=== PATIENT | male | born 1955 | race Caucasian/White ===

== ENCOUNTER 2017-11-28 07:56 | Day surgery (SDC) | payer OTHER ==
[~2017-11-28] VITALS: Ht 180.3 cm; Wt 137.9 kg
[~2017-11-28 07:56] MED LIST: DOXYCYCLINE HY100 MG PO; FLUOXETINE HCL20 MG PO
== END 2017-11-28 09:29 | disposition home or self-care (01) ==
LOC: DS 07:56 → OPS 07:56 → DS 08:45 → OPS 09:29
PROVIDERS: Ophthalmology
PROC: 08RJ3JZ Replacement of Right Lens with Synthetic Substitute, Percutaneous Approach (ICD-10-PCS; principal; 2017-11-28 08:45)
DX: H25.13 Age-related nuclear cataract, bilateral (principal); Z90.5 Acquired absence of kidney; Z79.2 Long term (current) use of antibiotics; Z79.899 Other long term (current) drug therapy

== ENCOUNTER 2017-12-12 07:57 | Day surgery (SDC) | payer OTHER ==
[~2017-12-12] VITALS: Ht 180.3 cm; Wt 137.9 kg
== END 2017-12-12 09:30 | disposition home or self-care (01) ==
LOC: OPS 07:57 → DS 07:57 → OPS 09:00
PROVIDERS: Ophthalmology
PROC: 08RK3JZ Replacement of Left Lens with Synthetic Substitute, Percutaneous Approach (ICD-10-PCS; principal; 2017-12-12 09:00)
DX: H25.12 Age-related nuclear cataract, left eye (principal); G47.30 Sleep apnea, unspecified; M54.9 Dorsalgia, unspecified; Z79.2 Long term (current) use of antibiotics; Z79.899 Other long term (current) drug therapy; Z99.89 Dependence on other enabling machines and devices; Z85.828 Personal history of other malignant neoplasm of skin; Z90.5 Acquired absence of kidney
CPT/HCPCS: J2250

== ENCOUNTER 2019-02-25 11:12 | Emergency (ER) | payer OTHER ==
[~2019-02-25] VITALS: Ht 180.3 cm; Wt 127.0 kg
--- OUTSIDE RECORDS SUMMARY | ~2019-02-25 | XMS | Encounter Summary ---
Demographics + + + | Address | [address] | | | [place] [address] | + + + | Home Phone | | + + + | Preferred Language | Unknown | + + + | Marital Status | | + + + | Mu-Ism Affiliation | MET | + + + | Race | Unknown | + + + | Ethnic Group | Not or | + + + Author + + + | Author | [facility] | + + + | Organization | [facility] | + + + | Address | Unknown | + + + | Phone | Unavailable | + + + Support + + + + + | Name | Relationship | Address | Phone | + + + + + | Vibha Terrell | RAHEEM | [address] | | | | | #[place] | | | | | [address] | | + + + + + Care Team Providers + +------+ + | Care Staple Cutter Name | Role | Phone | + +------+ + PCP | Unavailable | + +------+ + Encounter Details +--------+ + + + + | Date | Type | Department | Care Team | Description | +--------+ + + + + | 06/03/ | Transcribed | [facility] | Work, Social | Transcribed | | 2003 | | | | | +--------+ + + + + Social History + +-------+ +--------+------+ | Tobacco Use | Types | Packs/Day | Years | Date | | | | | Used | | + +-------+ +--------+------+ | Never Assessed | | | | | + +-------+ +--------+------+ + + + | Sex Assigned at | Date Recorded | | | | + + + | Not on file | | + + + + + + + | Job Start Date | Occupation | Industry | + + + + | Not on file | Not on file | Not on file | + + + + + + + + | Travel History | Travel Start | Travel End | + + + + + + | No recent travel history available. | + + documented as of this encounter Progress Notes Interface, Beef Cattle Farm Worker In - 04/30/2005 8:28 AM PDTClinic Date: 05/27/2004 Social Work Summary Background Information Patient Address: [address] [place] [address], [place] [id number] Patient Medical Account No.: n/a Evaluation Date: 05/27/2004 Evaluation Completed By: Susan Hercules L.C.S.W. Referral Request From: Purpose of Interview: This 48-year-old man was interviewed for a psychosocial assessment as part of his living unrelated kidney donor evaluation. The patient hopes to donate a kidney to his friend, Favian Ordaz. As the patient lives in [place] and is receiving his medical workup there, this interview was conducted by telephone. It lasted approximately 45 minutes. Marital/Family History: The patient was born and raised in [place], [place]. He just recently moved to [place] in March 2004, having previously lived in [place], [place]. The patient's mother at age 58 of cancer of the pancreas. His 75-year-old father Richard Loja lives in [place]. He has had quadruple bypass but is otherwise in good health. The patient's only sibling is his brother, Huy, age 45, who also lives in [place] and has no major health problems. The patient has been 25 years to Vibha Loja. Mrs. Loja is in good health. They do not have any children. 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 Education/Employment Information: The patient graduated from high school in 1971. He went on to university study right away but dropped out and moved to [place]. Eventually he went back to school at a community college and got his Associate of Science degree in [employer] and alternative [place]. 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 He states he had a love of history and social science. He ultimately moved to [place], [place] and got his Bachelor of Arts degree in the arts and history, and graduated with honors. He got his degree at age 39. He then went to the seminary at [employer] on scholarship and has his Mater's of Divinity and Art which he got in January 1999. His long-term plan is to complete his doctoral degree. He has no history of service. 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 He has discussed his plans for donation surgery with both his local episcopalian and the jo and he feels that he has solid backing from all involved. Financial Information: The patient states that his pay will continue at its current level while he has the surgery and recovers. He anticipates no financial hardship. He is anticipating staying with friends while in the [place] area so he does not anticipate any lodging expenses. The patient is aware that Mr. Ordaz's insurance covers his medical expenses that are directly related to his donation surgery but it does not cover wages or travel and lodging expense. The patient sees this as no barrier. Activities Information: The patient enjoys playing the guitar and going backpacking. He understands for several months while he is recovering from his surgery he would not be able to go backpacking. Medical/Legal/Psychiatric History: The patient states that he has not had any chronic health problems. He did cut his left hand with a saw requiring day surgery and he had general anesthesia when he had his wisdom teeth extracted. He has been diagnosed with sleep apnea and uses a CPAP machine at night which he reports has helped him immensely. The patient does feel that he gets "a little blue" during winter welch days and he does use a light box during the winter months which has been helpful. Otherwise, he denies any history of psychiatric disorder. He has sought counseling in the past and has found it to be very helpful. The patient is not currently smoking. He did smoke in the past but not for many years. He has never used recreational drugs. He describes his use of alcohol as moderate and he states that he does enjoy good wine or a beer, but his alcohol use was never identified as a problem. He has no history of legal infraction. Patient Understanding of the Donor Role: The patient states that he and Mr. Ordaz have worked together in their jobs with the episcopalian. The patient states that it has been difficult for him to see his friend physically "go downhill." Initially it had not occurred to the patient that he could be a kidney donor, however one day he came to this idea and he reported he realized that he had 2 kidneys and needed only 1. He discussed donation with his and she has been "totally supportive." The patient reports that his is very concerned for Mr. Ordaz also. The patient has no sense of coercion about making this donation and he comments "If it is God's plan, things will work out." During the course of the testing, the patient was told that he could not be a donor and he found this information to be very disappointing. He pursued further testing which did clear the way for him to go on to be a donor and he was very relieved and pleased that he could help his friend. The patient has not discussed his plan with his father and brother, although he expects that he will prior to the surgery. The patient states that he understands that Mr. Ordaz lost his kidney function due to diabetes. He knows that kidney transplantation does not provide a cure and that there is no guarantee if or for how long a transplanted organ will work. The patient did seem to have a general understanding of the nature of the donor surgery. He is making appropriate plans for his recovery and his work responsibilities. We discussed that kidney donation is a gift and as such it in no way obligates the kidney recipient to the kidney donor. The patient clearly understands this and he has a purely altruistic approach. Post-Hospitalization Care Plans: The patient has friends in the [place] area with whom he and his will be staying. The patient also commented that he has a yxrorr-ou-dop who is a nurse and her , who is a physician in general operator, who live in [place]. He was questioning whether it would be appropriate for them to plan to stay with that family in [place]. It appeared that he would feel most comfortable and happy with that plan. This interviewer urged him to discuss it with their transplant surgeon, Juana Sheridan. The patient's will accompany him and be available for his support. Advanced Directive: The purpose of the Advanced Directive was discussed and this interviewer sent him a copy of the [place] Advanced Directive form. Diagnostic Observations/Impressions: The patient readily made himself available for this telephone interview. He was open, friendly, and shared information easily and spontaneously. He is a man of ramos and kidney donation appears to be in concert with his values. He has been thoughtful in his approach to considering donation and he has the full support of his , his baptism, and the jo. Recommendations: From a psychosocial standpoint, the patient appears to be an excellent candidate for living, non-related kidney donation surgery. Susan Hercules L.C.S.W. / JADA [id number] / [id number] / [id number] / Tdocumented in this encounter Plan of Treatment Not on filedocumented as of this encounter Visit Diagnoses Not on filedocumented in this encounter
--- OUTSIDE RECORDS SUMMARY | ~2019-02-25 | XMS | Encounter Summary ---
Demographics + + + | Address | [address] | | | [place] [address] | + + + | Home Phone | | + + + | Preferred Language | Unknown | + + + | Marital Status | | + + + | Pentecostalism Affiliation | MET | + + + | Race | Unknown | + + + | Ethnic Group | Not or | + + + Author + + + | Organization | Unknown | + + + | Address | Unknown | + + + | Phone | Unavailable | + + + Support + + + + + | Name | Relationship | Address | Phone | + + + + + | Vibha MACIEL | [address] | | | | | #[place] | | | | | [address] | | + + + + + Care Team Providers + +------+ + | Care Director Of Cardiology Service Line Name | Role | Phone | + +------+ + PCP | Unavailable | + +------+ + Encounter Details +--------+ + + + + | Date | Type | Department | Care Team | Description | +--------+ + + + + | 08/05/ | Results | | Melinda Porter, | | | 2003 | Only | | [address] | | | | | | [address] | | | | | | [place] [address] | | | | | | [phone] | | +--------+ + + + + [...] + + documented as of this encounter Plan of Treatment Not on filedocumented as of this encounter Procedures + +--------+ + + + | Procedure Name | Priori | Date/Time | Associated Diagnosis | Comments | | | ty | | | | + +--------+ + + + | CBC ONLY | Routin | 08/05/2004 | | Results for this | | | e | 10:23 AM | | procedure are in the | | | | PST | | results section. | + +--------+ + + + documented in this encounter Results CBC ONLY WITH PLATELET (08/05/2004 10:23 AM PST) + + + + + + | Component | Value | Ref Range | Performed | Pathologist | | | | | At | Signature | + + + + + + | WHITE CELL | 8.6 | 4.4 - 11.0 K/cu | [facility] | | | COUNT | | mm | DEPARTMENT | | | | | | OF | | | | | | PATHOLOGY | | + + + + + + | RED CELL | 4.14 (L) | 4.20 - 5.90 | [facility] | | | COUNT | | M/cu mm | DEPARTMENT | | | | | | OF | | | | | | PATHOLOGY | | + + + + + + | HEMOGLOBIN | 12.8 (L) | 13.0 - 17.5 | [facility] | | | | | g/dL | DEPARTMENT | | | | | | OF | | | | | | PATHOLOGY | | + + + + + + | HEMATOCRIT | 36.7 (L) | 38.0 - 50.4 % | [facility] | | | | | | DEPARTMENT | | | | | | OF | | | | | | PATHOLOGY | | + + + + + + | MCV | 88.6 | 80.0 - 96.0 fL | [facility] | | | | | | DEPARTMENT | | | | | | OF | | | | | | PATHOLOGY | | + + + + + + | MCH | 30.9 | 28.5 - 32.3 pg | [facility] | | | | | | DEPARTMENT | | | | | | OF | | | | | | PATHOLOGY | | + + + + + + | MCHC | 34.9 | 33.4 - 35.5 | [facility] | | | | | g/dL | DEPARTMENT | | | | | | OF | | | | | | PATHOLOGY | | + + + + + + | RDW | 12.4 | 11.5 - 15.0 % | [facility] | | | | | | DEPARTMENT | | | | | | OF | | | | | | PATHOLOGY | | + + + + + + | PLATELET | 168 | 150 - 400 K/cu | [facility] | | | COUNT | | mm | DEPARTMENT | | | | | | OF | | | | | | PATHOLOGY | | + + + + + + | MPV | 7.9 | 7.4 - 10.4 fL | [facility] | | | | | | DEPARTMENT | | | | | | OF | | | | | | PATHOLOGY | | + + + + + + + + | Specimen | + + | | + + + + + + + | Performing | Address | City/State/Zipcode | Phone Number | | Organization | | | | + + + + + | [facility] DEPARTMENT OF | [address] | [place] [address] | | | PATHOLOGY | [address] | | | + + + + + | [facility] | [address] | [place] [address] | | | PATHOLOGY | [address] | | | + + + + + documented in this encounter Visit Diagnoses Not on filedocumented in this encounter"
--- OUTSIDE RECORDS SUMMARY | ~2019-02-25 | XMS | Encounter Summary ---
Demographics + + + | Address | [address] | | | [place] [address] | + + + | Home Phone | | + + + | Preferred Language | Unknown | + + + | Marital Status | | + + + | Mormonism Affiliation | MET | + + + | Race | Unknown | + + + | Ethnic Group | Not or | + + + Author + + + | Author | [facility] | + + + | Organization | [facility] | + + + | Address | Unknown | + + + | Phone | Unavailable | + + + Support + + + + + | Name | Relationship | Address | Phone | + + + + + | Vibha Terrell | RAHE[place] | [address] | | | | | #[place] | | | | | [address] | | + + + + + Care Team Providers + +------+ + | Care Automation Control Integrator Name | Role | Phone | + [...] as of this encounter Progress Notes Interface, Garden Equipment Mechanic In - 04/30/2005 8:28 AM PDTClinic Date: 05/27/2004 Social Work Summary Background Information Patient Address: [address] [place] [address], [place] [id number] Patient Medical Account No.: n/a Evaluation Date: 05/27/2004 Evaluation Completed By: Susan Hercules L.C.S.W. Referral Request From: Purpose of Interview: This 48-year-old man was interviewed for a psychosocial assessment as part of his living unrelated kidney donor evaluation. The patient hopes to donate a kidney to his friend, Favian Ordaz. As the patient lives in [place] and is receiving his medical workup there, this interview was conducted by telephone. It lasted approximately 45 minutes. Marital/Family History: The patient was born and raised in [place], [place]. He just recently moved to [place] in March 2004, having previously lived in [place], [place]. The patient's mother at age 58 of cancer of the pancreas. His 75-year-old father Richard Loja lives in [place]. He has had quadruple bypass but is otherwise in good health. The patient's only sibling is his brother, Huy, age 45, who also lives in [place] and has no major health problems. The patient has been 25 years to Vibha Loja. Mrs. Loja is in good health. They do not have any children. 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 Education/Employment Information: The patient graduated from high school in 1971. He went on to university study right away but dropped out and moved to [place]. Eventually he went back to school at a community college and got his Associate of Science degree in [employer] and alternative [place]. 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 He states he had a love of history and social science. He ultimately moved to [place], [place] and got his Bachelor of Arts degree in the arts and history, and graduated with honors. He got his degree at age 39. He then went to the seminary at [employer] on scholarship and has his Mater's of Divinity and Art which he got in January 1999. His penitentiary plan is to complete his doctoral degree. He has no history of service. 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 He has discussed his plans for donation surgery with both his local mormon and the jo and he feels that he has solid backing from all involved. Financial Information: The patient states that his pay will continue at its current level while he has the surgery and recovers. He anticipates no financial hardship. He is anticipating staying with friends while in the [place] area so he does not anticipate any [...] worked together in their jobs with the mormon. The patient states that it has been [...] Plans: The patient has friends in the [place] area with whom he and his will be staying. The patient also commented that he has a cewxox-an-lay who is a nurse and her , who is a physician in deputy attorney general, who live in [place]. He was questioning whether it would be appropriate for them to plan to stay with that family in [place]. It appeared that he would feel most comfortable and happy with that plan. This interviewer urged him to discuss it with their litigation coordinator, Juana Sheridan. The patient's will accompany him and be available for his support. Advanced Directive: The purpose of the Advanced Directive was discussed and this interviewer sent him a copy of the [place] Advanced Directive form. Diagnostic Observations/Impressions: The patient readily made himself available for this telephone interview. He was open, friendly, and shared information easily and spontaneously. He is a man of ramos and kidney donation appears to be in concert with his values. He has been thoughtful in his approach to considering donation and he has the full support of his , his worship, and the jo. Recommendations: From a psychosocial standpoint, the patient appears to be an excellent candidate for living, non-related kidney donation surgery. Susan Hercules L.C.S.W. / JADA [id number] / [id number] / [id number] / Tdocumented in this encounter Plan of Treatment Not on filedocumented as of this encounter Visit Diagnoses Not on filedocumented in this encounter
--- OUTSIDE RECORDS SUMMARY | ~2019-02-25 | XMS | Encounter Summary ---
Demographics + + + | Address | [address] | | | [place] [address] | + + + | Home Phone | | + + + | Preferred Language | Unknown | + + + | Marital Status | | + + + | Denominational Affiliation | MET | + + + [...] + + | Vibha MACIEL | [address] | | | | | #[place] | | | | | [address] | | + + + + + Care Team Providers + +------+ + | Care Associate Professor Of Mathematics Name | Role | Phone | + +------+ + PCP | Unavailable | + +------+ + Encounter Details +--------+ + + + + | Date | Type | Department | Care Team | Description | +--------+ + + + + | 08/18/ | [facility] | | Letter, Clinic | Letters | | 2004 | scribed | | | | +--------+ + + [...] as of this encounter Progress Notes Interface, Mercantile Agent In - 04/30/2005 9:32 AM PDT [id number] 08/18/2004 [id number] F[facility] [address] [place] [address] or August 18, 2004 [address]. [place], [place] RE: JENNIFER LOJA MR #: [id number] Dear Mr. Murphy: Your patient, Jennifer Loja underwent a left nephrectomy for donation to a friend 2 weeks ago at the [facility] in [place], [place]. Today, in followup, he is doing well. His wound has healed nicely. He has trace of protein in his urine, and his vital signs are normal. I am planning to obtain serum creatinine and another hematocrit today. I will forward that to you for your record. I have asked Mr. Loja to check back in with you in about a month for a followup exam. I would particularly like you to check his urine to make sure that the proteinuria that he has experienced today has not gotten any worse. If you have any questions or concerns, do not hesitate to contact me. Sincerely, Jovany Orr M.D. [facility] / [id number] / [id number] / [id number] / documented i n this encounter Plan of Treatment Not on filedocumented as of this encounter Visit Diagnoses Not on filedocumented in this encounter"
--- OUTSIDE RECORDS SUMMARY | ~2019-02-25 | XMS | Encounter Summary ---
Demographics + + + | Address | [address] | | | [place] [address] | + + + | Home Phone | | + + + | Preferred Language | Unknown | + + + | Marital Status | | + + + | Gnosticism Affiliation | MET | + + + | Race | Unknown | + + + | Ethnic Group | Not or | + + + Author + + + | Author | [facility] | + + + | Organization | [facility] | + + + | Address | Unknown | + + + | Phone | Unavailable | + + + Support + + + + + | Name | Relationship | Address | Phone | + + + + + | Vibha Terrell | [place] | [address] | | | | | #[place] | | | | | [address] | | + + + + + Care Team Providers + +------+ + | Care News Camera Operator Name | Role | Phone | + +------+ + PCP | Unavailable | + +------+ + Encounter Details +--------+ + + + + | Date | Type | Department | Care Team | Description | +--------+ + + + + | 02/15/ | Results | Nephrology - | Sandeep Paz, | | | 2003 | Only | Hemodialysis Center | [address] | | | | | [address] | [facility] | | | | | [facility] | [place], [place] | | | | | [place] | [address] | | | | | Mailcode: [id number] | [phone] | | | | | [place] [address] | | | | | | [phone] | | | +--------+ + + + [...] | + +--------+ + + + | CMV IGG AND IGM ABS, | Routin | 02/16/2004 | | Results for this | | SERUM | e | 7:10 AM | | procedure are in the | | | | PDT | | results section. | + +--------+ + + + documented in this encounter Results CMV, TOTAL ANTIBODY (02/16/2004 7:10 AM PDT) + + + + + + | Component | Value | Ref Range | Performed | Pathologist | | | | | At | Signature | + + + + + + | CMV, TOTAL | Non-reactiveComment: | | [facility] | | | ANTIBODY | Interpretation: | | DEPARTMENT | | | | Non-reactive: CMV | | OF | | | | antibodies not detected. | | PATHOLOGY | | | | Reactive: Suggestive of | | | | | | past or present | | | | | | infection. | | | | + + + + + + + + | Specimen | + + | | + + + + + + + | Performing | Address | City/State/Zipcode | Phone Number | | Organization | | | | + + + + + | [facility] | [address] | [place] [address] | | | PATHOLOGY | [address] [place] | | | + + + + + | [facility] | [address] | [place] [address] | | | PATHOLOGY | [place] | | | + + + + + documented in this encounter Visit Diagnoses Not on filedocumented in this encounter"
--- OUTSIDE RECORDS SUMMARY | ~2019-02-25 | XMS | Encounter Summary ---
Demographics + + + | Address | [address] | | | [place] [address] | + + + | Home Phone | | + + + | Preferred Language | Unknown | + + + | Marital Status | | + + + | Yarsani Affiliation | MET | + + + [...] + + | Vibha MACIEL | [address] | | | | | #[place] | | | | | [address] | | + + + + + Care Team Providers + +------+ + | Care Astrochemist Name | Role | Phone | + [...] as of this encounter Progress Notes Interface, Motorcycle Builder In - 04/30/2005 9:32 AM PDT [id number] 08/18/2004 [id number] F[facility] [address] [facility] [address] [place] [address] or August 18, 2004 [address]. [place], [place] RE: JENNIFER LOJA MR #: [id number] Dear Mr. Murphy: Your patient, Jennifer Loja underwent a left nephrectomy for donation to a friend 2 weeks ago at the [facility] in [place], [place]. Today, in followup, he is doing [...] to contact me. Sincerely, Jovany Orr M.D. [facility] / [id number] / [id number] / [id number] / documented i n this encounter Plan of Treatment Not on filedocumented as of this encounter Visit Diagnoses Not on filedocumented in this encounter"
--- OUTSIDE RECORDS SUMMARY | ~2019-02-25 | XMS | Clinical Summary ---
Demographics + + + | Address | [address] | | | [place] [address] | + + + | Home Phone | | + + + | Preferred Language | Unknown | + + + | Marital Status | | + + + | Congregation Affiliation | MET | + + + | Race | Unknown | + + + | Ethnic Group | Not or | + + + Author + + + | Author | NON REVENUE LOCATIONS | + + + | Organization | NON REVENUE LOCATIONS | + + + | Address | Unknown | + + + | Phone | Unavailable | + + + Support + + + + + | Name | Relationship | Address | Phone | + + + + + | Vibha Terrell | ECON | [address] | | | | | #[place] | | | | | [address] | | + + + + + Care Team Providers + +------+ + | Care Canoe Inspector Final Name | Role | Phone | + +------+ + | Thais Santos | PP | | + +------+ + Source Comments SHAUN is fully live on both [facility] Ambulatory and [facility] InPatient.[facility] Allergies No Known Allergies Medications + + + +---------+------+------+-------+ | Medication | Sig | Dispensed | Refills | Star | End | Statu | | | | | | t | Date | s | | | | | | Date | | | + + + +---------+------+------+-------+ | doxycycline | Take 100 mg by mouth | | 0 | | | Activ | | hyclate 100 mg oral | once daily. | | | | | e | | capsule | | | | | | | + + + +---------+------+------+-------+ | FLUoxetine | Take 20 mg by mouth | | 0 | | | Activ | | (PROZAC) 20 mg oral | every twenty-four | | | | | e | | capsule | hours. | | | | | | + + + +---------+------+------+-------+ Active Problems + + + | Problem | Noted Date | + + + | Sleep apnea | 02/13/2019 | + + + | Retinal detachment, rhegmatogenous, left eye | 02/13/2019 | + + + + + | Last Assessment & Plan: Mac OFF detachment left eyePARQ | | PPV/EL/FAX/Gas OSDiscussed with patient that an untreated retinal | | detachment will usually result in permanent severe vision loss | | or blindness. Also discussed that there are surgical risks | | associated with retinal reattachment. Some of these surgical | | risks include infection; bleeding; high pressure inside the eye; | | cataract; or excessive scar tissue formation. Discussed that most | | retinal detachment surgery is successful, although subsequent | | procedures may be needed sometimes. If the retina cannot be | | reattached, the eye will continue to lose sight and ultimately | | become blind. Discussed with patient that vision may take many | | months to improve and in some cases may never fully return. | | Indicated that unfortunately, some patients, particularly those | | with chronic retinal detachment or those with numerous | | postoperative complications, do not recover any vision. | | Indicated that the more severe the detachment, and the longer it | | has been present, the less vision may be expected to return. | | Questions answered. Patient agreeable to go ahead with | | procedure.Consent signed. | + + Encounters +--------+ + + + + | Date | Type | Specialty | Care Team | Description | +--------+ + + + + | 02/21/ | Telephone | | Pippa Hadley | Telephone follow-up | | 2018 | | | | (message from | | | | | | Sebastian) | +--------+ + + + + | 02/17/ | Procedure | | | | | 2018 | Pass | | | | +--------+ + + + + | 02/13/ | Office | | Aubrey Andre MD | Retinal detachment, | | 2018 | Visit | | | rhegmatogenous, left | | | | | | eye | +--------+ + + + + | 02/13/ | Travel | | | | | 2019 | | | | | +--------+ + + + + from Last 3 Months Family History + + +------+ + | Medical History | Relation | Name | Comments | + + +------+ + | Cataracts | Father | | | + + +------+ + | Heart Disease | Father | | | + + +------+ + | Cancer | Mother | | | + + +------+ + | Glasses | Mother | | | + + +------+ + | Pancreatic cancer | Mother | | | + + +------+ + | Amblyopia | Neg Hx | | | + + +------+ + | Blindness | Neg Hx | | | + + +------+ + | Diabetes | Neg Hx | | | + + +------+ + | Glaucoma | Neg Hx | | | + + +------+ + | Macular degeneration | Neg Hx | | | + + +------+ + | Retinal detachment | Neg Hx | | | + + +------+ + | Retinitis pigmentosa | Neg Hx | | | + + +------+ + + +------+--------+ + | Relation | Name | Status | Comments | + +------+--------+ + | Father | | | | + +------+--------+ + | Mother | | | | + +------+--------+ + Social History + +-------+ +--------+------+ | Tobacco Use | Types | Packs/Day | Years | Date | | | | | Used | | + +-------+ +--------+------+ | Former Smoker | | | | | + +-------+ +--------+------+ + +---+---+---+ | Smokeless Tobacco: | | | | | Never Used | | | | + +---+---+---+ + + + | Sex Assigned at [...] recent travel history available. | + + Last Filed Vital Signs + + + + + | Vital Sign | Reading | Time Taken | Comments | + + + + + | Blood Pressure | 137/94 | 02/13/2019 9:56 AM | | | | | PDT | | + + + + + | Pulse | 72 | 02/13/2019 9:56 AM | | | | | PDT | | + + + + + | Temperature | - | - | | + + + + + | Respiratory Rate | - | - | | + + + + + | Oxygen Saturation | - | - | | + + + + + | Inhaled Oxygen | - | - | | | Concentration | | | | + + + + + | Weight | 127 kg (280 lb) | 02/13/2019 9:56 AM | | | | | PDT | | + + + + + | Height | - | - | | + + + + + | Body Mass Index | - | - | | + + + + + Plan of Treatment + + + + + | Health Maintenance | Due Date | Last Done | Comments | + + + + + | Influenza (Flu) | | | | | vaccination (Season | 9 | | | | Ended) | | | | + + + + + | Pneumococcal | Aged Out | | No longer eligible | | vaccination | | | based on patient's | | | | | age to complete this | | | | | topic | + + + + + Results Not on filefrom Last 3 Months Insurance + +--------+ +--------+-------+---------+--------+ | Payer | Benefi | Subscriber | Effect | Phone | Address | Type | | | t Plan | ID | neida | | | | | | / | | Dates | | | | | | Group | | | | | | + +--------+ +--------+-------+---------+--------+ | PRIVATE DUTY RN MEDICAID | PRIVATE DUTY RN | xxxxxxxx | | | | Medica | | | EAST[place] | | 019-[id number] | | | id | | | [place] | | esent | | | | + +--------+ +--------+-------+---------+--------+ + +--------+ +--------+ + + | Guarantor Name | Accoun | Relation to | Date | Phone | Billing Address | | | t Type | Patient | of | | | | | | | | | | + +--------+ +--------+ + + | Ralf Loja | Person | Self | [birth year] | [address] | | [place] | [place] | | 1954 | [phone] | [place] [address] | | | [place] | | | 6 (Home) | | + +--------+ +--------+ + + Advance Directives + + + + + | Type | Date Recorded | Patient | Explanation | | | | Abrasive Grader Helper | | + + + + + | Advance | 08/10/2004 | | ADVANCE DIRECTIVE | | Directives and | 12:00 AM | | | | Living Will | | | | + + + + +"
--- OUTSIDE RECORDS SUMMARY | ~2019-02-25 | XMS | Clinical Summary ---
Demographics + + + | Address | [address] | | | [place] [address] | + + + | Home Phone [...] #[place] | | | | | [address] | | + + + + + Care Team Providers + +------+ + | Care Regional Economist Name | Role | Phone | + +------+ + | Thais Santos | PP | | + +------+ + Source Comments SHAUN is fully live on both [facility] and [facility] InPatient.[facility] Allergies No Known Allergies Medications + [...] | | | + +--------+ +--------+-------+---------+--------+ | CLINICAL MEDICAL TRANSCRIPTIONIST MEDICAID | CLINICAL MEDICAL TRANSCRIPTIONIST | xxxxxxxx | | | | Medica [...] [address] | | [place] | [place] | | 1954 | [phone] | [place] [address] | | | digna | | | 6 (Home) | | + +--------+ +--------+ + + Advance Directives + + + + + | Type | Date Recorded | Patient | Explanation | | | | Narrow Gauge Operator | | + + + + + | Advance | 08/10/2004 | | ADVANCE DIRECTIVE | | Directives and | 12:00 AM | | | | Living Will | | | | + + + + +"
--- OUTSIDE RECORDS SUMMARY | ~2019-02-25 | XMS | Encounter Summary ---
Demographics + + + | Address | [address] | | | [place] [address] | + + + | Home Phone | | + + + | Preferred Language | Unknown | + + + | Marital Status | | + + + | Methodist Affiliation | MET | + + + [...] + + | Vibha MACIEL | [address] | | | | | #[place] | | | | | [address] | | + + + + + Care Team Providers + +------+ + | Care Instructional Technology Coordinator Name | Role | Phone | + +------+ + PCP | Unavailable | + +------+ + Encounter Details +--------+ + + + + | Date | Type | Department | Care Team | Description | +--------+ + + + + | 06/02/ | Office | | Note, Outpatient | Progress Note | | 2004 | Visit-Trans | | Clinic | | | | cribed | | | | +--------+ + + [...] as of this encounter Progress Notes Interface, Pattern Maker Programer In - 04/30/2005 8:28 AM PDTClinic Date: 06/02/2004 Clinic: KIDNEY TRANSPLANT CONFERENCE NOTE Subjective: This 48-year-old man is a potential living renal donor for his friend, Jose Walker, [id number], who has end-stage renal disease due to type 2 diabetes mellitus. The history and physical examination were completed offsite. They indicated chronic low back pain, prior left hand surgery, no cigarette smoking since 1976, normal blood pressures, and a body mass index of 33. The patient takes no medications and has no allergies. Additional Data: ABO blood type A (as his potential recipient), CMV negative (recipient is positive), preliminary crossmatch negative, CBC normal on 2 occasions with serum creatinine levels of 1.0 and 1.1. CBC normal. Urinalysis normal on 2 occasions. Urine culture had no growth. INR and PTT normal. Two-hour modified glucose tolerance test normal. Hepatitis A negative, hepatitis B negative, and hepatitis C negative, HIV negative, HTLV1 negative, and RPR negative. Two of three urinary protein determinations were normal, a slightly increased determination was made after ejaculation, a 24-hour urine creatinine clearance normal (110). No PPD result. No stool guaiac result. EKG normal. Chest x-ray normal. A 3D spiral CT showed equal renal volumes and single renal arteries and veins bilaterally. Significant risk factors: None. Conference Recommendations: Left donor nephrectomy. Richard Severino M.D. TODD / JADA [id number] / [id number] / [id number] / [id number] Tdocumented in this encounter Plan of Treatment Not on filedocumented as of this encounter Visit Diagnoses Not on filedocumented in this encounter"
--- OUTSIDE RECORDS SUMMARY | ~2019-02-25 | XMS | Encounter Summary ---
Demographics + + + | Address | [address] | | | [place] [address] | + + + | Home Phone | | + + + | Preferred Language | Unknown | + + + | Marital Status | | + + + | Restoration Affiliation | MET | + + + | Race | Unknown | + + + | Ethnic Group | Not or | + + + Author + + + | Author | [facility] | + + + | Organization | [facility] | + + + | Address | Unknown | + + + | Phone | Unavailable | + + + Support + + + + + | Name | Relationship | Address | Phone | + + + + + | Vibha Terrell | [place] | [address] | | | | | #[place] | | | | | [address] | | + + + + + Care Team Providers + +------+ + | Care Supervisor Endless Track Vehicle Name | Role | Phone | + +------+ + | Thais Santos | PCP | | + +------+ + Reason for Visit + + + | Reason | Comments | + + + | New patient | | | consultation | | + + + | Referred by doctor | | + + + | Suspected Retinal | | | Tear Or Detachment | | + + + Benefits Check (Routine) + +--------+ + + + + | Status | Reason | Specialty | Diagnoses / | Referred By | Referred To | | | | | Procedures | Contact | Contact | + +--------+ + + + + | Pending | | Ophthalmology | | Non-[facility] | [facility] | | Review | | | | Epic Dept | [address] | | [address] | [address] | | | | | | | Mailcode: [place] | | | | | | | [place], | | | | | | | [place] [address] | | | | | | | Phone: | | | | | | | [phone] | | | | | | | Fax: | | | | | | | [phone] | + +--------+ + + + + Encounter Details +--------+---------+ + + + | Date | Type | Department | Care Team | Description | +--------+---------+ + + + | 02/13/ | Office | [facility] | Aubrey Andre MD | Retinal detachment, | | 2019 | Visit | [facility] | [address] | rhegmatogenous, left | | | | [facility] [address] [place], [place] | eye | | | | [address] | [address] | | | | | Mailcode: [facility] | [phone] | | | | | [facility] [place] | | | | | | [address] | | | | | | [phone] | | | +--------+---------+ + + + Social History + +-------+ [...] + + documented as of this encounter Last Filed Vital Signs + + + [...] + + + documented in this encounter Progress Notes Aubrey Andre MD - 02/13/2019 10:00 AM PDTFormatting of this note might be different from t he original. History and Physical (Pre-op) Ralf Loja [id number] 02/13/2019 HPI: RRD OS Current Medications: doxycycline hyclate 100 mg oral capsule, Take 100 mg by mouth once daily. FLUoxetine (PROZAC) 20 mg oral capsule, Take 20 mg by mouth every twenty-four hours. History reviewed. No pertinent past medical history. SH: Reviewed in [facility] FH: No known family history of AMD, retinal detachment or blindness from unknown causes ROS: negative for 10 systems reviewed except for loss of vision OS. Exam: Vitals: 02/13/19 0956 BP: (!) 137/94 Pulse: 72 Weight: 127 kg (280 lb) HEENT: normal, except for eyes (see prior ophthalmology note) Heart: RRR, no murmur Lungs: Clear to auscultation Abdomen: Soft Extremities: no edema Neuro: intact Skin: intact A/P: RRD OS Okay to proceed with ocular surgery pending anesthesia approval Aubrey Rodríguez MD - 02/13 10:00 AM PDT [facility] Progress Note 02/13/2019 Assessment & Plan: 63 y.o. male Retinal detachment, rhegmatogenous, left eye Mac OFF detachment left eye PARQ PPV/EL/FAX/Gas OS Discussed with patient that an untreated retinal detachment will usually result in permanen t severe vision loss or blindness. Also discussed that there are surgical risks associated w ith retinal reattachment. Some of these surgical risks include infection; bleeding; high pr essure inside the eye; cataract; or excessive scar tissue formation. Discussed that most ret inal detachment surgery is successful, although subsequent procedures may be needed sometime s. If the retina cannot be reattached, the eye will continue to lose sight and ultimately be come blind. Discussed with patient that vision may take many months to improve and in some c ases may never fully return. Indicated that unfortunately, some patients, particularly those with chronic retinal detachment or those with numerous postoperative complications, do not recover any vision. Indicated that the more severe the detachment, and the longer it has be en present, the less vision may be expected to return. Questions answered. Patient agreeable to go ahead with procedure. Consent signed. Call for decreased vision, increased distortion, increased pain, new floaters or flashing l ights Follow up: Return in 4 days (on 02/17/2019) for surgery. Chief Complaint: New patient consultation Referred by doctor Suspected Retinal Tear Or Detachment HPI: Patient reports seeing flashes of light in the left eye a few months ago. 2 weeks ago patient noted seeing a "sea of black particles" in both eyes while driving in a parking lot with sun in his eyes. NPO since 11pm ROS Positive for: Eyes Negative for: Constitutional, Gastrointestinal, Neurological, Skin, Genitourinary, Musculo skeletal, HENT, Endocrine, Cardiovascular, Respiratory, Psychiatric, Allergic/Imm, Heme/Lymp h Last edited by Aubrey Andre MD on 02/13/2019 11:33 AM. (History) No occupation listed. Current Outpatient Medications (Other) Medication Sig doxycycline hyclate Take 100 mg by mouth once daily. FLUoxetine Take 20 mg by mouth every twenty-four hours. Reviewed: Tobacco | Allergies | Meds | Problems | Med Hx | Surg Hx | Fam Hx | Soc Hx Examination: See Ophthalmology Module Attestations: The diesel service technician, under the supervision of the physician, is responsible for performing the f ollowing sections: RFV, ROS, PMH, PSH, SocHx, FH, Med list, Base Ophth Exam. The attending physician is responsible for the entire content of the note and has personall y performed the HPI and the physical examination Aubrey Andre MD documented in this encounter Plan of Treatment Not on filedocumented as of this encounter Visit Diagnoses + + | Diagnosis | + + | Retinal detachment, rhegmatogenous, left eye Retinal detachment with retinal defect, | | unspecified | + + documented in this encounter
--- OUTSIDE RECORDS SUMMARY | ~2019-02-25 | XMS | Encounter Summary ---
Demographics + + + | Address | [address] | | | [place] [address] | + + + | Home Phone | | + + + | Preferred Language | Unknown | + + + | Marital Status | | + + + | Gnosticist Affiliation | MET | + + + | Race | Unknown | + + + | Ethnic Group | Not or | + + + Author + + + | Author | [facility] | + + + | Organization | [facility] | + + + | Address | Unknown | + + + | Phone | Unavailable | + + + Support + + + + + | Name | Relationship | Address | Phone | + + + + + | Vibha Terrell | [place] | [address] | | | | | #[place] | | | | | [address] | | + + + + + Care Team Providers + +------+ + | Care Occupational Health Professional Name | Role | Phone | + +------+ + PCP | Unavailable | + +------+ + Encounter Details +--------+ + + + + | Date | Type | Department | Care Team | Description | +--------+ + + + + | 08/03/ | Office | [facility] | Clinic, Urology | Progress Note | | 2003 | Visit-Trans | | | | | | cribed | | [...] as of this encounter Progress Notes Interface, Transcription Typist In - 04/30/2005 9:09 AM PDT [id number] 08/02/2004 08/03/2004 [id number] [facility] Date: 08/03/2004 Clinic: Urology Subjective: Mr. Loja is a 49-year-old gentleman here for preoperative visit prior to a planned left nephrectomy on Sunday for donation to a friend. Past Medical History: His past medical history can be seen from extensive documentation by Dr. Ben Chavarria. I have nothing to add to his history. Physical Examination General: He is a healthy-appearing, mildly obese gentleman. He appears to be in excellent health. Vital Signs: Blood pressure 112/78, pulse is 96, and respirations 16. Physical examination is entirely unremarkable except for his upper dentures and mild obesity. I reviewed his CAT scan. His kidneys are of equal size bilaterally. They are single vessels. Impression: Excellent kidney donor. Plan: Left nephrectomy on August 02, 2004, for donation to a friend. The procedure, alternatives, and risks were discussed at length. He had no further questions regarding the potential complications. Jovany Orr M.D. SURY / JADA [id number] / [id number] / [id number] / Electronically signed by Jovany Orr 09-07-2004 08:29:39 AM documented i n this encounter Plan of Treatment Not on filedocumented as of this encounter Visit Diagnoses Not on filedocumented in this encounter"
--- OUTSIDE RECORDS SUMMARY | ~2019-02-25 | XMS | Encounter Summary ---
Demographics + + + | Address | [address] | | | [place] [address] | + + + | Home Phone | | + + + | Preferred Language | Unknown | + + + | Marital Status | | + + + | Hoahaoism Affiliation | MET | + + + | Race | Unknown | + + + | Ethnic Group | Not or | + + + Author + + + | Author | [facility] | + + + | Organization | [facility] | + + + | Address | Unknown | + + + | Phone | Unavailable | + + + Support + + + + + | Name | Relationship | Address | Phone | + + + + + | Vibha Terrell | [place] | [address] | | | | | #[place] | | | | | [address] | | + + + + + Care Team Providers + +------+ + | Care Marinator Name | Role | Phone | + +------+ + | Thais Santos | PCP | | + +------+ + Encounter Details +--------+ + + + + | Date | Type | Department | Care Team | Description | +--------+ + + + + | 02/17/ | Procedure | [facility] | | | | 2019 | Pass | [address] | | | | | | [place] | | | | | | [facility], | | | | | | [place] [address] | | | +--------+ + + + [...]
--- OUTSIDE RECORDS SUMMARY | ~2019-02-25 | XMS | Encounter Summary ---
Demographics + + + | Address | [address] | | | [place] [address] | + + + | Home Phone | | + + + | Preferred Language | Unknown | + + + | Marital Status | | + + + | Baptist Affiliation | MET | + + + [...] | Vibha Terrell | [place] | [address] | | | | | #[place] | | | | | [address] | | + + + + + Care Team Providers + +------+ + | Care Chemical Project Engineer Name | Role | Phone | + +------+ + | Thais Santos | PCP | | + +------+ + Encounter Details +--------+--------+ + + + | Date | Type | Department | Care Team | Description | +--------+--------+ + + + | 02/13/ | Travel | | | | | 2019 | | | | | +--------+--------+ + + + Social History + +-------+ [...]
--- OUTSIDE RECORDS SUMMARY | ~2019-02-25 | XMS | Encounter Summary ---
Demographics + + + | Address | [address] | | | [place] [address] | + + + | Home Phone | | + + + | Preferred Language | Unknown | + + + | Marital Status | | + + + | Islam Affiliation | MET | + + + | Race | Unknown | + + + | Ethnic Group | Not or | + + + Author + + + | Author | [facility] | + + + | Organization | [facility] | + + + | Address | Unknown | + + + | Phone | Unavailable | + + + Support + + + + + | Name | Relationship | Address | Phone | + + + + + | Vibha Terrell | [place] | [address] | | | | | #[place] | | | | | [address] | | + + + + + Care Team Providers + +------+ + | Care Energy Audit Advisor Name | Role | Phone | + [...] as of this encounter Progress Notes Interface, Spring Machine Operator In - 04/30/2005 9:09 AM PDT [id number] 08/02/2004 08/03/2004 [id number] [facility] Date: 08/03/2004 Clinic: Urology [...] complications. Jovany Orr M.D. SURY / JADA [id number] / [id number] / [id number] / Electronically signed by Jovany Orr 09-07-2004 08:29:39 AM documented i n this encounter Plan of Treatment Not on filedocumented as of this encounter Visit Diagnoses Not on filedocumented in this encounter"
--- OUTSIDE RECORDS SUMMARY | ~2019-02-25 | XMS | Encounter Summary ---
Demographics + + + | Address | [address] | | | [place] [address] | + + + | Home Phone | | + + + | Preferred Language | Unknown | + + + | Marital Status | | + + + | Sikh Affiliation | MET | + + + [...] + + | Vibha MACIEL | [address] | | | | | #[place] | | | | | [address] | | + + + + + Care Team Providers + +------+ + | Care Field Clinical Engineer Name | Role | Phone | + +------+ + PCP | Unavailable | + +------+ + Encounter Details +--------+ + + + + | Date | Type | Department | Care Team | Description | +--------+ + + + + | 08/02/ | Orders Only | | Record, Operation | | | 2003 | | | | [...] | + +--------+ + + + | OPERATION RECORD | | 08/02/2004 | | Results for this | | | | | | procedure are in the | | | | | | results section. | + +--------+ + + + documented in this encounter Results OPERATION RECORD (08/02/2004) + + | Transcriptions | + + | Interface, Audio Experience Expert In - 09/23/2005 6:05 AM PST | | [id number] | | [id number] [facility] | | | | Date: 08/02/2004 | | | | Attending Surgeon: Jovany Orr M.D. | | | | Kindergarten Prep Teacher(s): Ben Chavarria M.D. | | | | Preoperative Diagnosis(es): | | Left living renal donor. | | | | Postoperative Diagnosis(es): | | Left living renal donor. | | | | Procedures Performed: | | Open left donor nephrectomy. | | | | Anesthesia: | | Epidural with general endotracheal. | | | | Complications: | | | | Specimens: | | Left donor kidney to recipient. | | | | Indications: | | Mr. Loja is an otherwise healthy 49-year-old gentleman who has undergone a | | thorough workup and preoperative evaluation for a living renal donation to | | his friend, Jose Rebolledo, who is having a simultaneous transplantation | | of the left donor kidney. A preoperative evaluation of the kidney showed a | | single renal artery and vein with a volume of 170 cubic mL. | | | | Findings: | | Single left renal artery with a small single left renal vein. Normal | | ureter anatomy. Peritoneum and pleura were not entered. | | | | Procedure: | | An epidural catheter was placed in the upright position by Anesthesia prior | | to the operation. The patient was taken to the Operating Room and placed | | in supine position where general endotracheal anesthesia was administered. | | His left abdominal wall and flank were shaved and washed with alcohol. He | | was put into the right lateral decubitus position. The table was flexed. | | The kidney rest was elevated, and all pressure points were padded. A Damon | | catheter was placed, and SCDs were applied. He was given 1 g of IV Ancef, | | and his left flank was prepped and draped in standard sterile fashion. An | | oblique incision was made between the 11th and 12th ribs on the left with a | | scalpel. The dissection was carried down through electrocautery to the | | subcutaneous tissues. The dissection was carried just over the superior | | border of the 12th rib which was retracted inferiorly. The dorsolumbar | | fascia and ligament were divided, and the 12th rib retracted inferiorly. | | The peritoneum was swept away, and the remainder of the internal and | | external oblique muscles divided with cautery. Blunt dissection was used | | to free up the area around Gerota's fascia which was entered with | | electrocautery, and the kidney was sequentially freed up from the Gerota's | | fascia with a combination of electrocautery and small clips. Once the | | hilum was reached, lymphatics were divided between 3-0 silk ties over small | | clips. The renal vein and artery were both dissected out. There was a | | small amount of bleeding from the left renal vein during the dissection | | which was oversewn with a jixpjd-qq-huuob 6-0 Prolene suture. The renal | | artery was dissected out. The artery appeared to be single with good | | length. The vein was also freed up along the length of its course, but it | | appeared to be small in diameter. There was additional bleeding from that | | appeared to be the gonadal vessels which were oversewn on the donor kidney | | with renal vein with 5-0 interrupted xymbdh-zx-ufzlf Prolene suture. The | | ureter was dissected down into the pelvis with a combination of | | electrocautery and sharp dissection. It was clipped distally towards the | | bladder with a large clip and divided. Further dissection of the hilum was | | carried out to free up lymphatics with 3-0 silk sutures. The cold | | preservation fluid had been set up on the back table during the operation. | | At this point, a large clip was placed across the left renal artery | | followed by a right-angle clamp and two right-angle clamps were applied to | | the left renal vein. The renal artery and vein were divided and the kidney | | was passed off the table and preserved in the back table with cold | | preservation solution until the effluent was clear. It was packed in slush | | and transported to the next room with a sterile covering. A 0 silk suture | | tie was placed around the renal vein. This was followed by a 2-0 silk | | stick tie, and the clamp was removed. The renal artery had an additional | | 2-0 silk suture ligature placed distal to the clip, and the clamp was | | removed. Hemostasis was adequate. Small bleeders in the fat of Gerota's | | were cauterized. The wound was irrigated with warm antibiotic solution. | | Hemostasis was adequate. The transversalis and internal and external | | oblique fascia and muscular layers were closed with a single layer of | | interrupted 0 Maxon cafubv-vu-ouojk sutures. A running 4-0 Polysorb was | | used to approximate the subcutaneous layers and a 5-0 Vicryl subcuticular | | fashion for the skin. The wound was cleaned and dried, and Mastisol, | | Steri-Strips, and a dry sterile dressing were placed. The patient was | | placed in the supine position, extubated, and taken in stable condition to | | the Postoperative Care Unit. | | | | Estimated Blood Loss: | | 500 mL. | | | | IV Fluids: | | 1300 mL of crystalloid. | | | | There were no complications. Sponge and needle count was correct. | | | | | | | | | | Ben Chavarria M.D. | | | | | | | | Jovany Orr M.D. | | | | SB / HS | | [id number] / [id number] / [id number] / [id number] | | | | | | | | | | | | Electronically signed by Jovany Orr 08-05-2004 02:29:50 PM | + + documented in this encounter Visit Diagnoses Not on filedocumented in this encounter"
--- OUTSIDE RECORDS SUMMARY | ~2019-02-25 | XMS | Encounter Summary ---
Demographics + + + | Address | [address] | | | [place] [address] | + + + | Home Phone | | + + + | Preferred Language | Unknown | + + + | Marital Status | | + + + | Zoroastrian Affiliation | MET | + + + [...] + + | Vibha MACIEL | [address] | | | | | #[place] | | | | | [address] | | + + + + + Care Team Providers + +------+ + | Care Crm Analyst Name | Role | Phone | + +------+ + PCP | Unavailable | + +------+ + Encounter Details +--------+ + + + + | Date | Type | Department | Care Team | Description | +--------+ + + + + | 08/01/ | H&P-Transcr | | Physical, History | Hstry & Physical | | 2004 | ibed | | & | | +--------+ + + + + [...]
--- OUTSIDE RECORDS SUMMARY | ~2019-02-25 | XMS | Encounter Summary ---
Demographics + + + | Address | [address] | | | [place] [address] | + + + | Home Phone | | + + + | Preferred Language | Unknown | + + + | Marital Status | | + + + | Buddhist Affiliation | MET | + + + | Race | Unknown | + + + | Ethnic Group | Not or | + + + Author + + + | Author | [facility] | + + + | Organization | [facility] | + + + | Address | Unknown | + + + | Phone | Unavailable | + + + Support + + + + + | Name | Relationship | Address | Phone | + + + + + | Vibha Terrell | [place] | [address] | | | | | #[place] | | | | | [address] | | + + + + + Care Team Providers + +------+ + | Care Financial Cost Analyst Name | Role | Phone | + +------+ + PCP | Unavailable | + +------+ + Encounter Details +--------+ + + + + | Date | Type | Department | Care Team | Description | +--------+ + + + + | 08/18/ | Office | [facility] | Clinic, [...] as of this encounter Progress Notes Interface, Senior Premium Auditor In - 04/30/2005 9:32 AM PDT [id number] [facility] Date: 08/18/2004 Clinic: Urology Subjective: Mr. Loja had a left nephrectomy for donation to a friend 2 weeks ago. He is back for follow up now. He is doing well. He has no complaints. He is not taking any pain medications. Physical Examination General: His wound is well healed. Vital Signs: His blood pressure is 120/70. Abdomen: There is some subjective evidence of numbness in the medial aspect of the wound on the anterior abdomen. His urine showed a trace of protein. Impression: Doing well after left nephrectomy for donation. Plan: He is to have a creatinine and hematocrit today. He is returning to [place], [place], for followup with a physician's pathologist assistant that he sees in [place]. Jovany Orr M.D. [facility] / [id number] / [id number] / [id number] / [id number] documented i n this encounter Plan of Treatment Not on filedocumented as of this encounter Visit Diagnoses Not on filedocumented in this encounter"
--- OUTSIDE RECORDS SUMMARY | ~2019-02-25 | XMS | Encounter Summary ---
Demographics + + + | Address | [address] | | | [place] [address] | + + + | Home Phone | | + + + | Preferred Language | Unknown | + + + | Marital Status | | + + + | Yazdanism Affiliation | MET | + + + [...] #[place] | | | | | [address] | | + + + + + Care Team Providers + +------+ + | Care Assistant Bookkeeper Name | Role | Phone | + +------+ + PCP | Unavailable | + +------+ + Encounter Details +--------+ + + + + | Date | Type | Department | Care Team | Description | +--------+ + + + + | 08/03/ | Documentati | Anesthesiology | Unknown . | | | 2003 | on | [address] | | | | | | [facility] | | | | | | [place], [place] | | | | | | [address] | | | +--------+ + + + [...] | + +--------+ + + + | ANESTHESIA/SEDATION | | 08/03/2004 | | Results for this | | | | 11:00 AM | | procedure are in the | | | | PST | | results section. | + +--------+ + + + documented in this encounter Results ANESTHESIA/SEDATION (08/03/2004 11:00 AM PST) + + + | Narrative | Performed At | + + + | Ordered by an unspecified provider. | | + + + + + | Transcriptions | + + | 08/03/2004 11:00 AM [facility] Anesthesia PostOp Report | | | | Patient: JENNIFER DANIELS Med Rec: [id number] Sex M Bdate: 1955 | | Date/Time Data | | Entered Into [facility] | | Anesth PostOp | | Surgery Date [id number] 08/03/04 11:00 | | Anesthesiologist DOMINICK BENNETT 08/03/04 11:00 | | Complications | | None/None Reported YES 08/03/04 15:24 | | Outcomes Information | | Satisfied with care YES 08/03/04 15:24 | | Info obtained from PATIENT 08/03/04 15:24 | | Outcome of Anesthesia NO CHANGE IN HOSPITAL COURSE 08/03/04 15:24 | | | + + documented in this encounter Visit Diagnoses Not on filedocumented in this encounter"
--- OUTSIDE RECORDS SUMMARY | ~2019-02-25 | XMS | Encounter Summary ---
Demographics + + + | Address | [address] | | | [place] [address] | + + + | Home Phone | | + + + | Preferred Language | Unknown | + + + | Marital Status | | + + + | Mosque Affiliation | MET | + + + [...] + + | Vibha MACIEL | [address] | | | | | #[place] | | | | | [address] | | + + + + + Care Team Providers + +------+ + | Care Industrial Maintenance Manager Name | Role | Phone | + +------+ + PCP | Unavailable | + +------+ + Encounter Details +--------+ + + + + | Date | Type | Department | Care Team | Description | +--------+ + + + + | 08/08/ | Office | | Note, Outpatient | [...] as of this encounter Progress Notes Interface, Mobile Engineer In - 04/30/2005 9:09 AM PDT [id number] [facility] Date: 08/08/2004 Clinic: TELEPHONE NOTE I spoke to Dr. Juan M Young who is the aoupbti-pz-pcg of the patient, Ralf Loja, today. Ralf was discharged yesterday and is staying with his family in [place], [place]. Dr. Young is a family physician and discussed Ralf's condition with me. He reported that Ralf has had continued vomiting despite the scopolamine patch. I instructed him to remove the scopolamine patch, and I called in prescriptions for Compazine orally and a suppository and Zofran tablets for his postoperative nausea. He was instructed to have Ralf call me if there are any continued problems as I would like to reevaluate him if he has continued difficulties with nausea and vomiting. Ben Chavarria M.D. Jovany Orr M.D. Resident, Surgery / [id number] / [id number] / [id number] / Electronically signed by Jovany Orr 09-07-2004 08:29:44 AM documented i n this encounter Plan of Treatment Not on filedocumented as of this encounter Visit Diagnoses Not on filedocumented in this encounter"
--- OUTSIDE RECORDS SUMMARY | ~2019-02-25 | XMS | Encounter Summary ---
Demographics + + + | Address | [address] | | | [place] [address] | + + + | Home Phone | | + + + | Preferred Language | Unknown | + + + | Marital Status | | + + + | Oriental Orthodox Affiliation | MET | + + + [...] + + | Vibha MACIEL | [address] | | | | | #[place] | | | | | [address] | | + + + + + Care Team Providers + +------+ + | Care Weight Loss Consultant Name | Role | Phone | + +------+ + PCP | Unavailable | + +------+ + Encounter Details +--------+ + + + + | Date | Type | Department | Care Team | Description | +--------+ + + + + | 08/02/ | Procedure - | | Documentation, | OP REPORT-TEACHING | | 2004 | | | Teaching Physician | | | | Transcribed | | | | +--------+ + + [...] | + +--------+ + + + | TEACHING PHYSICIAN | | 08/02/2004 | | | + +--------+ + + + documented in this encounter Visit Diagnoses Not on filedocumented in this encounter"
--- OUTSIDE RECORDS SUMMARY | ~2019-02-25 | XMS | Encounter Summary ---
Demographics + + + | Address | [address] | | | [place] [address] | + + + | Home Phone | | + + + | Preferred Language | Unknown | + + + | Marital Status | | + + + | Druze Affiliation | MET | + + + [...] + + | Vibha MACIEL | [address] | | | | | #[place] | | | | | [address] | | + + + + + Care Team Providers + +------+ + | Care Cement Fittings Maker Name | Role | Phone | + +------+ + PCP | Unavailable | + +------+ + Encounter Details +--------+ + + + + | Date | Type | Department | Care Team | Description | +--------+ + + + + | 08/03/ | Results | | Luis Santos | | | 2004 | Only | | | | +--------+ + + [...] | + +--------+ + + + | DIFFERENTIAL | Routin | 08/05/2004 | | Results for this | | | e | 6:30 AM | | procedure are in the | | | | PST | | results section. | + +--------+ + + + | CBC, WITH | Routin | 08/05/2004 | | Results for this | | DIFFERENTIAL | e | 6:30 AM | | procedure are in the | | | | PST | | results section. | + +--------+ + + + | CBC ONLY | Routin | 08/03/2004 | | Results for this | | | e | 6:12 AM | | procedure are in the | | | | PST | | results section. | + +--------+ + + + documented in this encounter Results DIFFERENTIAL (08/05/2004 6:30 AM PST) + +-------+ + + + | Component | Value | Ref Range | Performed | Pathologist | | | | | At | Signature | + +-------+ + + + | NEUTROPHIL | QNS | 50 - 70 % | [facility] | | | % | | | DEPARTMENT | | | | | | OF | | | | | | PATHOLOGY | | + +-------+ + + + | LYMPHOCYTE | QNS | 18 - 42 % | [facility] | | | % | | | DEPARTMENT | | | | | | OF | | | | | | PATHOLOGY | | + +-------+ + + + | MONOCYTE % | QNS | 2 - 8 % | [facility] | | | | | | DEPARTMENT | | | | | | OF | | | | | | PATHOLOGY | | + +-------+ + + + | EOS % | QNS | 1 - 3 % | [facility] | | | | | | DEPARTMENT | | | | | | OF | | | | | | PATHOLOGY | | + +-------+ + + + | BASO % | QNS | <3 % | [facility] | | | | | | DEPARTMENT | | | | | | OF | | | | | | PATHOLOGY | | + +-------+ + + + + + | Specimen | + + | | + + + + + | Narrative | Performed At | + + + | qns to repeat test,phd | [facility] | | | DEPARTMENT OF | | | PATHOLOGY | + + + + + + + + | Performing | Address | City/State/Zipcode | Phone Number | | Organization | | | | + + + + + | [facility] | [address] | [place] [address] | | | PATHOLOGY | [address] | | | + + + + + | [facility] | [address] | [place] [address] | | | PATHOLOGY | [address] | | | + + + + + CBC, WITH DIFFERENTIAL (08/05/2004 6:30 AM PST) + +-------+ + + + | Component | Value | Ref Range | Performed | Pathologist | | | | | At | Signature | + +-------+ + + + | WHITE CELL | QNS | 4.4 - 11.0 K/cu | [facility] | | | COUNT | | mm | DEPARTMENT | | | | | | OF | | | | | | PATHOLOGY | | + +-------+ + + + | RED CELL | QNS | 4.20 - 5.90 | [facility] | | | COUNT | | M/cu mm | DEPARTMENT | | | | | | OF | | | | | | PATHOLOGY | | + +-------+ + + + | HEMOGLOBIN | QNS | 13.0 - 17.5 | [facility] | | | | | g/dL | DEPARTMENT | | | | | | OF | | | | | | PATHOLOGY | | + +-------+ + + + | HEMATOCRIT | QNS | 38.0 - 50.4 % | [facility] | | | | | | DEPARTMENT | | | | | | OF | | | | | | PATHOLOGY | | + +-------+ + + + | MCV | QNS | 80.0 - 96.0 fL | [facility] | | | | | | DEPARTMENT | | | | | | OF | | | | | | PATHOLOGY | | + +-------+ + + + | MCH | QNS | 28.5 - 32.3 pg | [facility] | | | | | | DEPARTMENT | | | | | | OF | | | | | | PATHOLOGY | | + +-------+ + + + | MCHC | QNS | 33.4 - 35.5 | [facility] | | | | | g/dL | DEPARTMENT | | | | | | OF | | | | | | PATHOLOGY | | + +-------+ + + + | RDW | QNS | 11.5 - 15.0 % | [facility] | | | | | | DEPARTMENT | | | | | | OF | | | | | | PATHOLOGY | | + +-------+ + + + | PLATELET | QNS | 150 - 400 K/cu | [facility] | | | COUNT | | mm | DEPARTMENT | | | | | | OF | | | | | | PATHOLOGY | | + +-------+ + + + | MPV | QNS | 7.4 - 10.4 fL | [facility] | | | | | | DEPARTMENT | | | | | | OF | | | | | | PATHOLOGY | | + +-------+ + + + + + | Specimen | + + | | + + + + + | Narrative | Performed At | + + + | qns to repeat test,phd | [facility] | | | DEPARTMENT OF | | | PATHOLOGY | + + + + + + + + | Performing | Address | City/State/Zipcode | Phone Number | | Organization | | | | + + + + + | [facility]MENT [facility] | [facility] | [place] [address] | | | PATHOLOGY | [address] | | | + + + + + | [facility] DEPARTMENT OF | [address] | [place] [address] | | | PATHOLOGY | [address] | | | + + + + + CBC ONLY WITH PLATELET (08/03/2004 6:12 AM PST) + + + + + + | Component | Value | Ref Range | Performed | Pathologist | | | | | At | Signature | + + + + + + | WHITE CELL | 7.8 | 4.4 - 11.0 K/cu | [facility] | | | COUNT | | mm | DEPARTMENT | | | | | | OF | | | | | | PATHOLOGY | | + + + + + + | RED CELL | 3.94 (L) | 4.20 - 5.90 | [facility] | | | COUNT | | M/cu mm | DEPARTMENT | | | | | | OF | | | | | | PATHOLOGY | | + + + + + + | HEMOGLOBIN | 12.4 (L) | 13.0 - 17.5 | [facility] | | | | | g/dL | DEPARTMENT | | | | | | OF | | | | | | PATHOLOGY | | + + + + + + | HEMATOCRIT | 35.5 (L) | 38.0 - 50.4 % | [facility] | | | | | | DEPARTMENT | | | | | | OF | | | | | | PATHOLOGY | | + + + + + + | MCV | 90.0 | 80.0 - 96.0 fL | [facility] | | | | | | DEPARTMENT | | | | | | OF | | | | | | PATHOLOGY | | + + + + + + | MCH | 31.5 | 28.5 - 32.3 pg | [facility] | | | | | | DEPARTMENT | | | | | | OF | | | | | | PATHOLOGY | | + + + + + + | MCHC | 35.0 | 33.4 - 35.5 | [facility] | | | | | g/dL | DEPARTMENT | | | | | | OF | | | | | | PATHOLOGY | | + + + + + + | RDW | 12.9 | 11.5 - 15.0 % | [facility] | | | | | | DEPARTMENT | | | | | | OF | | | | | | PATHOLOGY | | + + + + + + | PLATELET | 163 | 150 - 400 K/cu | [facility] | | | COUNT | | mm | DEPARTMENT | | | | | | OF | | | | | | PATHOLOGY | | + + + + + + | MPV | 7.6 | 7.4 - 10.4 fL | [facility] | | | | | | DEPARTMENT [...] | + + + + + | [facility] DEPARTMENT OF | [address] | [place] [address] | | | PATHOLOGY | [address] | | | + + + + + | [facility] DEPARTMENT OF | [address] | [place] [address] | | | PATHOLOGY | [address] | | | + + + + + documented in this encounter Visit Diagnoses Not on filedocumented in this encounter"
--- OUTSIDE RECORDS SUMMARY | ~2019-02-25 | XMS | Encounter Summary ---
Demographics + + + | Address | [address] | | | [place] [address] | + + + | Home Phone | | + + + | Preferred Language | Unknown | + + + | Marital Status | | + + + | Uatsdin Affiliation | MET | + + + [...] + + | Vibha MACIEL | [address] | | | | | #[place] | | | | | [address] | | + + + + + Care Team Providers + +------+ + | Care American Indian Studies Professor Name | Role | Phone | + [...]
--- OUTSIDE RECORDS SUMMARY | ~2019-02-25 | XMS | Encounter Summary ---
Demographics + + + | Address | [address] | | | [place] [address] | + + + | Home Phone | | + + + | Preferred Language | Unknown | + + + | Marital Status | | + + + | Scientology Affiliation | MET | + + + | Race | Unknown | + + + | Ethnic Group | Not or | + + + Author + + + | Author | [facility] | + + + | Organization | [facility] | + + + | Address | Unknown | + + + | Phone | Unavailable | + + + Support + + + + + | Name | Relationship | Address | Phone | + + + + + | Vibha Terrell | [place] | [address] | | | | | #[place] | | | | | [address] | | + + + + + Care Team Providers + +------+ + | Care Complex Manager Name | Role | Phone | + +------+ + | Thais Santos | PCP | | + +------+ + Reason for Visit + + + | Reason | Comments | + + + | Telephone follow-up | message from dr. Cortes | + + + Encounter Details +--------+ + + + + | Date | Type | Department | Care Team | Description | +--------+ + + + + | 02/21/ | Telephone | [facility] | P[place], | Telephone follow-up | | 2019 | | [facility] at | [address] | (message from | | | | [address] | [address] | [place]) | | | | [address] | [place], [place] | | | | | Mailcode: [facility] | [address] | | | | | [place], [place] | [phone] | | | | | [address] | | | | | | [phone] | | | +--------+ + + + [...]
--- OUTSIDE RECORDS SUMMARY | ~2019-02-25 | XMS | Encounter Summary ---
Demographics + + + | Address | [address] | | | [place] [address] | + + + | Home Phone | | + + + | Preferred Language | Unknown | + + + | Marital Status | | + + + | Confucianist Affiliation | MET | + + + | Race | Unknown | + + + | Ethnic Group | Not or | + + + Author + + + | Author | [facility] | + + + | Organization | [facility] | + + + | Address | Unknown | + + + | Phone | Unavailable | + + + Support + + + + + | Name | Relationship | Address | Phone | + + + + + | Vibha Terrell | RAHE[place] | [address] | | | | | #[place] | | | | | [address] | | + + + + + Care Team Providers + +------+ + | Care Pathology Secretary/Transcriptionist Name | Role | Phone | + +------+ + PCP | Unavailable | + +------+ + Encounter Details +--------+ + + + + | Date | Type | Department | Care Team | Description | +--------+ + + + + | 08/02/ | Results | [facility] | Jovany Orr MD | | | 2003 | Only | [address] | [address] | | | | | [facility] | [facility] [place] | | | | | Mailcode: [id number] | [address] | | | | | [facility] | [phone] | | | | | [place], [place] | | | | | | [address] | | | | | | [phone] | | | +--------+ + + + [...] + | CBC ONLY | Routin | 08/18/2004 | | Results for this | | | e | 11:05 AM | | procedure are in the | | | | PST | | results section. | + +--------+ + + + | CREATININE, PLASMA | Routin | 08/18/2004 | | Results for this | | | e | 11:05 AM | | procedure are in the | | | | PST | | results section. | + +--------+ + + + | BASIC METABOLIC SET | Urgent | 08/07/2004 | | Results for this | | (NA, K, CL, TCO2, | | 9:45 AM | | procedure are in the | | BUN, CR, GLU, CA) | | PST | | results section. | + +--------+ + + + | CBC ONLY | Urgent | 08/07/2004 | | Results for this | | | | 9:45 AM | | procedure are in the | | | | PST | | results section. | + +--------+ + + + | BASIC METABOLIC SET | Routin | 08/06/2004 | | Results for this | | (NA, K, CL, TCO2, | e | 10:45 AM | | procedure are in the | | BUN, CR, GLU, CA) | | PST | | results section. | + +--------+ + + + | X-RAY CHEST 1 VIEW | Urgent | 08/02/2004 | | Results for this | | | | 10:45 AM | | procedure are in the | | | | PST | | results section. | + +--------+ + + + | DIFFERENTIAL | Routin | 08/01/2004 | | Results for this | | | e | 8:15 AM | | procedure are in the | | | | PST | | results section. | + +--------+ + + + | BLOOD BANK PRODUCT | Routin | 08/01/2004 | | Results for this | | | e | 8:15 AM | | procedure are in the | | | | PST | | results section. | + +--------+ + + + | BLOOD BANK PRODUCT | Routin | 08/01/2004 | | Results for this | | | e | 8:15 AM | | procedure are in the | | | | PST | | results section. | + +--------+ + + + | CMV IGG AND IGM ABS, | Routin | 08/01/2004 | | Results for this | | SERUM | e | 8:15 AM | | procedure are in the | | | | PST | | results section. | + +--------+ + + + | INR | Routin | 08/01/2004 | | Results for this | | | e | 8:15 AM | | procedure are in the | | | | PST | | results section. | + +--------+ + + + | CBC, WITH | Routin | 08/01/2004 | | Results for this | | DIFFERENTIAL | e | 8:15 AM | | procedure are in the | | | | PST | | results section. | + +--------+ + + + | COMPLETE METABOLIC | Routin | 08/01/2004 | | Results for this | | SET | e | 8:15 AM | | procedure are in the | | (NA,K,CL,CO2,BUN,CRE | | PST | | results section. | | AT,GLUC,CA,AST,ALT,B | | | | | | JAMEY TOTAL,ALK | | | | | | PHOS,ALB,PROT TOTAL) | | | | | + +--------+ + + + | UA, DIPSTICK ONLY | Routin | 08/01/2004 | | Results for this | | | e | 8:15 AM | | procedure are in the | | | | PST | | results section. | + +--------+ + + + | URINE, MICROSCOPIC | Routin | 08/01/2004 | | Results for this | | EXAM | e | 8:15 AM | | procedure are in the | | | | PST | | results section. | + +--------+ + + + | APTT (ACT. PART. | Routin | 08/01/2004 | | Results for this | | THROMBO TIME) | e | 8:15 AM | | procedure are in the | | | | PST | | results section. | + +--------+ + + + | TYPE AND CROSSMATCH | Routin | 08/01/2004 | | Results for this | | | e | 8:15 AM | | procedure are in the | | | | PST | | results section. | + +--------+ + + + | CULTURE, URINE BACTI | Routin | 08/01/2004 | | Results for this | | | e | 8:15 AM | | procedure are in the | | | | PST | | results section. | + +--------+ + + + | PHOSPHORUS, PLASMA | Routin | 08/01/2004 | | Results for this | | | e | 8:15 AM | | procedure are in the | | | | PST | | results section. | + +--------+ + + + | BILIRUBIN DIRECT | Routin | 08/01/2004 | | Results for this | | | e | 8:15 AM | | procedure are in the | | | | PST | | results section. | + +--------+ + + + | URIC ACID, PLASMA | Routin | 08/01/2004 | | Results for this | | | e | 8:15 AM | | procedure are in the | | | | PST | | results section. | + +--------+ + + + | MAGNESIUM, PLASMA | Routin | 08/01/2004 | | Results for this | | | e | 8:15 AM | | procedure are in the | | | | PST | | results section. | + +--------+ + + + | LDH TOTAL, PLASMA | Routin | 08/01/2004 | | Results for this | | | e | 8:15 AM | | procedure are in the | | | | PST | | results section. | + +--------+ + + + | CHOLESTEROL TOTAL, | Routin | 08/01/2004 | | Results for this | | PLASMA | e | 8:15 AM | | procedure are in the | | | | PST | | results section. | + +--------+ + + + documented in this encounter Results CBC ONLY WITH PLATELET (08/18/2004 11:05 AM PST) + +---------+ + + + | Component | Value | Ref Range | Performed | Pathologist | | | | | At | Signature | + +---------+ + + + | WHITE CELL | 5.8 | 4.4 - 11.0 K/cu | [facility] | | | COUNT | | mm | DEPARTMENT | | | | | | OF | | | | | | PATHOLOGY | | + +---------+ + + + | RED CELL | 4.51 | 4.20 - 5.90 | [facility] | | | COUNT | | M/cu mm | DEPARTMENT | | | | | | OF | | | | | | PATHOLOGY | | + +---------+ + + + | HEMOGLOBIN | 13.6 | 13.0 - 17.5 | [facility] | | | | | g/dL | DEPARTMENT | | | | | | OF | | | | | | PATHOLOGY | | + +---------+ + + + | HEMATOCRIT | 39.9 | 38.0 - 50.4 % | [facility] | | | | | | DEPARTMENT | | | | | | OF | | | | | | PATHOLOGY | | + +---------+ + + + | MCV | 88.5 | 80.0 - 96.0 fL | [facility] | | | | | | DEPARTMENT | | | | | | OF | | | | | | PATHOLOGY | | + +---------+ + + + | MCH | 30.2 | 28.5 - 32.3 pg | [facility] | | | | | | DEPARTMENT | | | | | | OF | | | | | | PATHOLOGY | | + +---------+ + + + | MCHC | 34.1 | 33.4 - 35.5 | [facility] | | | | | g/dL | DEPARTMENT | | | | | | OF | | | | | | PATHOLOGY | | + +---------+ + + + | RDW | 13.1 | 11.5 - 15.0 % | [facility] | | | | | | DEPARTMENT | | | | | | OF | | | | | | PATHOLOGY | | + +---------+ + + + | PLATELET | 468 (H) | 150 - 400 K/cu | [facility] | | | COUNT | | mm | DEPARTMENT | | | | | | OF | | | | | | PATHOLOGY | | + +---------+ + + + | MPV | 6.8 (L) | 7.4 - 10.4 fL | [facility] | | | | | | DEPARTMENT | | | | | | OF | | | | | | PATHOLOGY | | + +---------+ + + + + + | Specimen | + + | | + + + + + + + | Performing | Address | City/State/Zipcode | Phone Number | | Organization | | | | + + + + + | [facility] DEPARTMENT OF | [address] | [place] [address] | | | PATHOLOGY | [address] | | | + + + + + | [facility] DEPARTMENT OF | [address] | [place] [address] | | | PATHOLOGY | [address] | | | + + + + + CREATININE, PLASMA (08/18/2004 11:05 AM PST) + +---------+ + + + | Component | Value | Ref Range | Performed | Pathologist | | | | | At | Signature | + +---------+ + + + | CREATININE | 1.7 (H) | 0.7 - 1.3 mg/dL | [facility] | | | PLASMA | | | DEPARTMENT | | | (LAB) | | | OF | | | | | | PATHOLOGY | | + +---------+ + + + + + | Specimen | + + | | + + + + + + + | Performing | Address | City/State/Zipcode | Phone Number | | Organization | | | | + + + + + | [facility] DEPARTMENT OF | [address] | [place] [address] | | | PATHOLOGY | [address] | | | + + + + + | [facility] DEPARTMENT OF | [address] | [place] [address] | | | PATHOLOGY | [address] | | | + + + + + CBC ONLY WITH PLATELET (08/07/2004 9:45 AM PST) + + + + + + | Component | Value | Ref Range | Performed | Pathologist | | | | | At | Signature | + + + + + + | WHITE CELL | 6.5 | 4.4 - 11.0 K/cu | [facility] | | | COUNT | | mm | DEPARTMENT | | | | | | OF | | | | | | PATHOLOGY | | + + + + + + | RED CELL | 4.23 | 4.20 - 5.90 | [facility] | | | COUNT | | M/cu mm | DEPARTMENT | | | | | | OF | | | | | | PATHOLOGY | | + + + + + + | HEMOGLOBIN | 13.0 | 13.0 - 17.5 | [facility] | | | | | g/dL | DEPARTMENT | | | | | | OF | | | | | | PATHOLOGY | | + + + + + + | HEMATOCRIT | 37.3 (L) | 38.0 - 50.4 % | [facility] | | | | | | DEPARTMENT | | | | | | OF | | | | | | PATHOLOGY | | + + + + + + | MCV | 88.1 | 80.0 - 96.0 fL | [facility] | | | | | | DEPARTMENT | | | | | | OF | | | | | | PATHOLOGY | | + + + + + + | MCH | 30.8 | 28.5 - 32.3 pg | [facility] [...] + + + + | RDW | 12.7 | 11.5 - 15.0 % | [facility] | | | | | | DEPARTMENT | | | | | | OF | | | | | | PATHOLOGY | | + + + + + + | PLATELET | 204 | 150 - 400 K/cu | [facility] | | | COUNT | | mm | DEPARTMENT | | | | | | OF | | | | | | PATHOLOGY | | + + + + + + | MPV | 6.8 (L) | 7.4 - 10.4 fL | [facility] [...] DEPARTMENT OF | [address] | [place] [address] | | | PATHOLOGY | [address] | | | + + + + + | [facility]MENT | [address] | [place] [address] | | | PATHOLOGY | [address] | | | + + + + + BASIC METABOLIC SET (08/07/2004 9:45 AM PST) + +---------+ + + + | Component | Value | Ref Range | Performed | Pathologist | | | | | At | Signature | + +---------+ + + + | GLUCOSE, | 128 (H) | 65 - 110 mg/dL | [facility] | | | PLASMA | | | DEPARTMENT | | | (LAB) | | | OF | | | | | | PATHOLOGY | | + +---------+ + + + | BUN, PLASMA | 18 | 6 - 20 mg/dL | [facility] | | | (LAB) | | | DEPARTMENT | | | | | | OF | | | | | | PATHOLOGY | | + +---------+ + + + | CREATININE | 1.6 (H) | 0.7 - 1.3 mg/dL | [facility] | | | PLASMA | | | DEPARTMENT | | | (LAB) | | | OF | | | | | | PATHOLOGY | | + +---------+ + + + | SODIUM, | 132 (L) | 136 - 145 | [facility] | | | PLASMA | | mmol/L | DEPARTMENT | | | (LAB) | | | OF | | | | | | PATHOLOGY | | + +---------+ + + + | POTASSIUM, | 3.6 | 3.5 - 5.1 | [facility] | | | PLASMA | | mmol/L | DEPARTMENT | | | (LAB) | | | OF | | | | | | PATHOLOGY | | + +---------+ + + + | CHLORIDE, | 98 | 98 - 107 mmol/L | [facility] | | | PLASMA | | | DEPARTMENT | | | (LAB) | | | OF | | | | | | PATHOLOGY | | + +---------+ + + + | TOTAL CO2, | 26 | 23 - 29 mmol/L | [facility] | | | PLASMA | | | DEPARTMENT | | | (LAB) | | | OF | | | | | | PATHOLOGY | | + +---------+ + + + | CALCIUM, | 8.3 (L) | 8.5 - 10.5 | [facility] | | | PLASMA | | mg/dL | DEPARTMENT | | | (LAB) | | | OF | | | | | | PATHOLOGY | | + +---------+ + + + + + | Specimen | + + | | + + + + + + + | Performing | Address | City/State/Zipcode | Phone Number | | Organization | | | | + + + + + | [facility] DEPARTMENT OF | [address] | [place] [address] | | | PATHOLOGY | [address] | | | + + + + + | [facility] DE[facility]MENT [facility] | [address] | [place] [address] | | | PATHOLOGY | [address] | | | + + + + + BASIC METABOLIC SET (08/06/2004 10:45 AM PST) + +---------+ + + + | Component | Value | Ref Range | Performed | Pathologist | | | | | At | Signature | + +---------+ + + + | GLUCOSE, | 133 (H) | 65 - 110 mg/dL | [facility] | | | PLASMA | | | DEPARTMENT | | | (LAB) | | | OF | | | | | | PATHOLOGY | | + +---------+ + + + | BUN, PLASMA | 19 | 6 - 20 mg/dL | [facility] | | | (LAB) | | | DEPARTMENT | | | | | | OF | | | | | | PATHOLOGY | | + +---------+ + + + | CREATININE | 1.8 (H) | 0.7 - 1.3 mg/dL | [facility] | | | PLASMA | | | DEPARTMENT | | | (LAB) | | | OF | | | | | | PATHOLOGY | | + +---------+ + + + | SODIUM, | 128 (L) | 136 - 145 | [facility] | | | PLASMA | | mmol/L | DEPARTMENT | | | (LAB) | | | OF | | | | | | PATHOLOGY | | + +---------+ + + + | POTASSIUM, | 3.8 | 3.5 - 5.1 | [facility] | | | PLASMA | | mmol/L | DEPARTMENT | | | (LAB) | | | OF | | | | | | PATHOLOGY | | + +---------+ + + + | CHLORIDE, | 96 (L) | 98 - 107 mmol/L | [facility] | | | PLASMA | | | DEPARTMENT | | | (LAB) | | | OF | | | | | | PATHOLOGY | | + +---------+ + + + | TOTAL CO2, | 25 | 23 - 29 mmol/L | [facility] | | | PLASMA | | | DEPARTMENT | | | (LAB) | | | OF | | | | | | PATHOLOGY | | + +---------+ + + + | CALCIUM, | 8.4 (L) | 8.5 - 10.5 | [facility] | | | PLASMA | | mg/dL | DEPARTMENT | | | (LAB) | | | OF | | | | | | PATHOLOGY | | + +---------+ + + + + + | Specimen | + + | | + + + + + + + | Performing | Address | City/State/Zipcode | Phone Number | | Organization | | | | + + + + + | [facility] | [address] | [place] [address] | | | PATHOLOGY | [address] | | | + + + + + | [facility] | [address] | [place] [address] | | | PATHOLOGY | [address] | | | + + + + + CHEST 1 VIEW (08/02/2004 10:45 AM PST) + + + + + + | Component | Value | Ref Range | Performed | Pathologist | | | | | At | Signature | + + + + + + | CHEST, 1 | Radiologist 1: REILLY, | | | | | VIEW | Rosa KNOXEXAM: AP | | | | | | CHEST COMPARISON: None | | | | | | available. FINDINGS: | | | | | | There is right basilar | | | | | | discoid | | | | | | subsegmentalatelectasis | | | | | | and asymmetry of the | | | | | | right perihilar region. | | | | | | Lungsotherwise clear | | | | | | without pneumonia, | | | | | | pleural effusion, or | | | | | | pulmonaryedema. There is | | | | | | no pneumothorax. An | | | | | | epidural catheter | | | | | | ispresent. The | | | | | | cardiomediastinal | | | | | | silhouette is within | | | | | | normallimits. | | | | | | IMPRESSION: 1. Right | | | | | | basilar subsegmental | | | | | | atelectasis. No | | | | | | pneumothorax. 2. | | | | | | Asymmetric right | | | | | | perihilar region. | | | | | | Recommend follow-up | | | | | | exam. | | | | + + + + + + + + | Specimen | + + | | + + + +---------+ + + | Performing | Address | City/State/Zipcode | Phone Number | | Organization | | | | + +---------+ + + | [facility] DEPARTMENT OF | | | | | RADIOLOGY | | | | + +---------+ + + CULT, URINE BACTI (08/01/2004 8:15 AM PST) + + + + + + | Component | Value | Ref Range | Performed | Pathologist | | | | | At | Signature | + + + + + + | SOURCE BODY | Clean catch | | | | | SITE | | | | | + + + + + + | CULTURE | Urine Culture | | | | | RESULT | | | | | | | Source...............: | | | | | | Clean catch | | | | | | Culture: Final | | | | | | Report: No growth (< | | | | | | 1,000 col/ml) after | | | | | | 18-24 | | | | | | | | | | | | hours | | | | | | Final Report | | | | + + + + + + + + | Specimen | + + | | + + + + + + + | Performing | Address | City/State/Zipcode | Phone Number | | Organization | | | | + + + + + | [facility] | [address] | [place] [address] | | | LAB-MICRO | | | | + + + + + CMV, TOTAL ANTIBODY (08/01/2004 8:15 AM PST) + + + + + [...] | + + + + + | [facility] | [address] | [place] [address] | | | PATHOLOGY | [address] | | | + + + + + | [facility] | [address] | [place] [address] | | | PATHOLOGY | [address] | | | + + + + + LUCIANO TUTTLE (08/01/2004 8:15 AM PST) + + + + + + | Component | Value | Ref Range | Performed | Pathologist | | | | | At | Signature | + + + + + + | COLOR(UR) | Yellow | | [facility] | | | | | | DEPARTMENT | | | | | | OF | | | | | | PATHOLOGY | | + + + + + + | APPEARANCE | Clear | | [facility] | | | | | | DEPARTMENT | | | | | | OF | | | | | | PATHOLOGY | | + + + + + + | GLUCOSE(UR) | Negative | mg/dL | [facility] | | | | | | DEPARTMENT | | | | | | OF | | | | | | PATHOLOGY | | + + + + + + | BILIRUBIN | Negative | | [facility] | | | | | | DEPARTMENT | | | | | | OF | | | | | | PATHOLOGY | | + + + + + + | KETONES | Negative | mg/dL | [facility] | | | | | | DEPARTMENT | | | | | | OF | | | | | | PATHOLOGY | | + + + + + + | SPECIFIC | 1.020 | 1.005 - 1.030 | [facility] | | | GRAVITY | | | DEPARTMENT | | | | | | OF | | | | | | PATHOLOGY | | + + + + + + | BLOOD | Negative | | [facility] | | | | | | DEPARTMENT | | | | | | OF | | | | | | PATHOLOGY | | + + + + + + | PH(UR) | 7.0 | 5.0 - 8.0 | [facility] | | | | | | DEPARTMENT | | | | | | OF | | | | | | PATHOLOGY | | + + + + + + | PROTEIN(LAB | Negative | mg/dL | [facility] | | | ) | | | DEPARTMENT | | | | | | OF | | | | | | PATHOLOGY | | + + + + + + | UROBILINOGE | 0.2 | 0 - 0.2 SELINA | [facility] | | | N | | UNITS | DEPARTMENT | | | | | | OF | | | | | | PATHOLOGY | | + + + + + + | NITRITES | Negative | Negative | [facility] | | | | | | DEPARTMENT | | | | | | OF | | | | | | PATHOLOGY | | + + + + + + | LEUKOCYTE | Negative | Negative | [facility] | | | ESTERASE | | | DEPARTMENT | | | [...] | + + + + + | [facility] DEPARTMENT OF | [address] | [place] [address] | | | PATHOLOGY | [address] | | | + + + + + | [facility] DEPARTMENT OF | [address] | [place] [address] | | | PATHOLOGY | [address] | | | + + + + + URINE, MICROSCOPIC EXAM (08/01/2004 8:15 AM PST) + +-------+ + + + | Component | Value | Ref Range | Performed | Pathologist | | | | | At | Signature | + +-------+ + + + | SQUAMOUS | None | /hpf | [facility] | | | EPITHELIAL | | | DEPARTMENT | | | | | | OF | | | | | | PATHOLOGY | | + +-------+ + + + | NON-SQUAMOU | None | /hpf | [facility] | | | S EPITH | | | DEPARTMENT | | | | | | OF | | | | | | PATHOLOGY | | + +-------+ + + + | RED CELLS | None | 0 - 3 /hpf | [facility] | | | | | | DEPARTMENT | | | | | | OF | | | | | | PATHOLOGY | | + +-------+ + + + | WHITE CELLS | 0-1 | 0 - 5 /hpf | [facility] | | | | | | DEPARTMENT | | | | | | OF | | | | | | PATHOLOGY | | + +-------+ + + + | BACTERIA | None | /hpf | [facility] | | | | | | DEPARTMENT | | | | | | OF | | | | | | PATHOLOGY | | + +-------+ + + + | MUCOUS | None | /lpf | [facility] | | | | | | DEPARTMENT | | | | | | OF | | | | | | PATHOLOGY | | + +-------+ + + + | HYALINE | None | 0 - 1 /lpf | [facility] | | | CASTS | | | DEPARTMENT | | | | | | OF | | | | | | PATHOLOGY | | + +-------+ + + + | GRANULAR | None | /lpf | [facility] | | | CASTS | | | DEPARTMENT | | | | | | OF | | | | | | PATHOLOGY | | + +-------+ + + + | CELLULAR | None | /lpf | [facility] | | | CASTS | | | DEPARTMENT | | | | | | OF | | | | | | PATHOLOGY | | + +-------+ + + + | AMORPHOUS | None | /hpf | [facility] | | | CRYSTALS | | | DEPARTMENT | | | | | | OF | | | | | | PATHOLOGY | | + +-------+ + + + | CALCIUM | None | /hpf | [facility] | | | OXALATE | | | DEPARTMENT | | | ARSEN | | | OF | | | | | | PATHOLOGY | | + +-------+ + + + | URIC ACID | None | /hpf | [facility] | | | CRYSTALS | | | DEPARTMENT | | | | | | OF | | | | | | PATHOLOGY | | + +-------+ + + + | TRIPLE P04 | None | /hpf | [facility] | | | CRYSTALS | | | DEPARTMENT | | | | | | OF | | | | | | PATHOLOGY | | + +-------+ + + + | YEAST (LAB) | None | /hpf | [facility] | | | | | | DEPARTMENT | | | | | | OF | | | | | | PATHOLOGY | | + +-------+ + + + | TRICHOMONAS | None | /hpf | [facility] | | | | | [...] | + + + + + | [facility] DEPARTMENT OF | [address] | [place] [address] | | | PATHOLOGY | [address] | | | + + + + + | [facility] DEPARTMENT OF | [facility] | [place] [address] | | | PATHOLOGY | [address] | | | + + + + + APTT (ACT. PART. THROMBO TIME) (08/01/2004 8:15 AM PST) + + + + + + | Component | Value | Ref Range | Performed | Pathologist | | | | | At | Signature | + + + + + + | APTT | 28.9Comment: | 26.0 - 36.0 | [facility] | | | | APTT | seconds | DEPARTMENT | | | | Therapeutic | | OF | | | | Range | | PATHOLOGY | | | | | | | | | | (75-120)sec | | | | | | Hepa | | | | | | rin levels of 0.35-0.7 | | | | | | U/mL | | | | + + + + + + + + | Specimen | + + | | + + + + + + + | Performing | Address | City/State/Zipcode | Phone Number | | Organization | | | | + + + + + | [facility] | [address] | [place] [address] | | | PATHOLOGY | [address] | | | + + + + + | [facility] | [address] | [facility] [place] [address] | | | PATHOLOGY | [address] | | | + + + + + PROTHROMBIN TIME (08/01/2004 8:15 AM PST) + + + + + + | Component | Value | Ref Range | Performed | Pathologist | | | | | At | Signature | + + + + + + | INR | 0.97Comment: | 0.90 - 1.20 INR | [facility] | | | | PT INR | | DEPARTMENT | | | | Therapeutic ranges for | | OF | | | | full | | PATHOLOGY | | | | anticoagulation: | | | | | | INR for | | | | | | Venous | | | | | | Thromboembolism | | | | | | | | | | | | (2.0-3.0)INR | | | | | | INR for most | | | | | | patients with mech. | | | | | | valves (2.5-3.5)I | | | | | | NR | | | | + + + + + + + + | Specimen | + + | | + + + + + + + | Performing | Address | City/State/Zipcode | Phone Number | | Organization | | | | + + + + + | [facility] DEPARTMENT OF | [address] | [place] [address] | | | PATHOLOGY | [address] | | | + + + + + | [facility] DEPARTMENT | [address] | [place] [address] | | | PATHOLOGY | [address] | | | + + + + + DIFFERENTIAL (08/01/2004 8:15 AM PST) + +--------+ + + + | Component | Value | Ref Range | Performed | Pathologist | | | | | At | Signature | + +--------+ + + + | NEUTROPHIL | 44 (L) | 50 - 70 % | [facility] | | | % | | | DEPARTMENT | | | | | | OF | | | | | | PATHOLOGY | | + +--------+ + + + | LYMPHOCYTE | 42 | 18 - 42 % | [facility] | | | % | | | DEPARTMENT | | | | | | OF | | | | | | PATHOLOGY | | + +--------+ + + + | MONOCYTE % | 10 (H) | 2 - 8 % | [facility] | | | | | | DEPARTMENT | | | | | | OF | | | | | | PATHOLOGY | | + +--------+ + + + | EOS % | 3 | 1 - 3 % | [facility] | | | | | | DEPARTMENT | | | | | | OF | | | | | | PATHOLOGY | | + +--------+ + + + | BASO % | 1 | <3 % | [facility] | | | | | | DEPARTMENT | | | | | | OF | | | | | | PATHOLOGY | | + +--------+ + + + | NEUTROPHIL | 1.9 | 1.8 - 7.7 K/cu | [facility] | | | # | | mm | DEPARTMENT | | | | | | OF | | | | | | PATHOLOGY | | + +--------+ + + + | LYMPHOCYTE | 1.8 | 1.0 - 4.8 K/cu | [facility] | | | # | | mm | DEPARTMENT | | | | | | OF | | | | | | PATHOLOGY | | + +--------+ + + + | MONOCYTE # | 0.4 | 0.1 - 0.6 K/cu | [facility] | | | | | mm | DEPARTMENT | | | | | | OF | | | | | | PATHOLOGY | | + +--------+ + + + | EOS # | 0.1 | <0.6 K/cu mm | [facility] | | | | | | DEPARTMENT | | | | | | OF | | | | | | PATHOLOGY | | + +--------+ + + + | BASO # | 0.0 | <0.2 | [facility] | | | | | | DEPARTMENT | | | | | | OF | | | | | | PATHOLOGY | | + +--------+ + + + + + | Specimen | + + | | + + + + + + + | Performing | Address | City/State/Zipcode | Phone Number | | Organization | | | | + + + + + | [facility] | [phone] | [place] [address] | | | PATHOLOGY | [address] | | | + + + + + | [facility] | [address] [place] [address] [address] | [place] [address] | | | PATHOLOGY | [address] | | | + + + + + ABHILASH WITH DIFFERENTIAL (08/01/2004 8:15 AM PST) + +---------+ + + + | Component | Value | Ref Range | Performed | Pathologist | | | | | At | Signature | + +---------+ + + + | WHITE CELL | 4.2 (L) | 4.4 - 11.0 K/cu | [facility] | | | COUNT | | mm | DEPARTMENT | | | | | | OF | | | | | | PATHOLOGY | | + +---------+ + + + | RED CELL | 5.12 | 4.20 - 5.90 | [facility] | | | COUNT | | M/cu mm | DEPARTMENT | | | | | | OF | | | | | | PATHOLOGY | | + +---------+ + + + | HEMOGLOBIN | 15.8 | 13.0 - 17.5 | [facility] | | | | | g/dL | DEPARTMENT | | | | | | OF | | | | | | PATHOLOGY | | + +---------+ + + + | HEMATOCRIT | 45.9 | 38.0 - 50.4 % | [facility] | | | | | | DEPARTMENT | | | | | | OF | | | | | | PATHOLOGY | | + +---------+ + + + | MCV | 89.7 | 80.0 - 96.0 fL | [facility] | | | | | | DEPARTMENT | | | | | | OF | | | | | | PATHOLOGY | | + +---------+ + + + | MCH | 31.0 | 28.5 - 32.3 pg | [facility] | | | | | | DEPARTMENT | | | | | | OF | | | | | | PATHOLOGY | | + +---------+ + + + | MCHC | 34.5 | 33.4 - 35.5 | [facility] | | | | | g/dL | DEPARTMENT | | | | | | OF | | | | | | PATHOLOGY | | + +---------+ + + + | RDW | 13.0 | 11.5 - 15.0 % | [facility] | | | | | | DEPARTMENT | | | | | | OF | | | | | | PATHOLOGY | | + +---------+ + + + | PLATELET | 220 | 150 - 400 K/cu | [facility] | | | COUNT | | mm | DEPARTMENT | | | | | | OF | | | | | | PATHOLOGY | | + +---------+ + + + | MPV | 7.6 | 7.4 - 10.4 fL | [facility] | | | | | | DEPARTMENT | | | | | | OF | | | | | | PATHOLOGY | | + +---------+ + + + + + | Specimen | + + | | + + + + + + + | Performing | Address | City/State/Zipcode | Phone Number | | Organization | | | | + + + + + | [facility] DEPARTMENT OF | [address] | [place] [address] | | | PATHOLOGY | [address] | | | + + + + + | [facility] DEPARTMENT OF | [address] | [place] [address] | | | PATHOLOGY | [address] | | | + + + + + COMP METABOLIC SET (08/01/2004 8:15 AM PST) + +-------+ + + + | Component | Value | Ref Range | Performed | Pathologist | | | | | At | Signature | + +-------+ + + + | GLUCOSE, | 100 | 65 - 110 mg/dL | [facility] | | | PLASMA | | | DEPARTMENT | | | (LAB) | | | OF | | | | | | PATHOLOGY | | + +-------+ + + + | BUN, PLASMA | 14 | 6 - 20 mg/dL | [facility] | | | (LAB) | | | DEPARTMENT | | | | | | OF | | | | | | PATHOLOGY | | + +-------+ + + + | CREATININE | 1.0 | 0.7 - 1.3 mg/dL | [facility] | | | PLASMA | | | DEPARTMENT | | | (LAB) | | | OF | | | | | | PATHOLOGY | | + +-------+ + + + | TOTAL | 7.0 | 6.1 - 7.9 g/dL | [facility] | | | PROTEIN, | | | DEPARTMENT | | | PLASMA | | | OF | | | (LAB) | | | PATHOLOGY | | + +-------+ + + + | ALBUMIN, | 3.8 | 3.5 - 4.7 g/dL | [facility] | | | PLASMA | | | DEPARTMENT | | | (LAB) | | | OF | | | | | | PATHOLOGY | | + +-------+ + + + | CALCIUM, | 9.4 | 8.5 - 10.5 | [facility] | | | PLASMA | | mg/dL | DEPARTMENT | | | (LAB) | | | OF | | | | | | PATHOLOGY | | + +-------+ + + + | BILIRUBIN | 1.0 | 0.3 - 1.2 mg/dL | [facility] | | | TOTAL | | | DEPARTMENT | | | | | | OF | | | | | | PATHOLOGY | | + +-------+ + + + | ALK PHOS | 61 | 53 - 128 U/L | [facility] | | | | | | DEPARTMENT | | | | | | OF | | | | | | PATHOLOGY | | + +-------+ + + + | AST(SGOT) | 20 | 15 - 41 U/L | [facility] | | | | | | DEPARTMENT | | | | | | OF | | | | | | PATHOLOGY | | + +-------+ + + + | SODIUM, | 136 | 136 - 145 | [facility] | | | PLASMA | | mmol/L | DEPARTMENT | | | (LAB) | | | OF | | | | | | PATHOLOGY | | + +-------+ + + + | POTASSIUM, | 4.1 | 3.5 - 5.1 | [facility] | | | PLASMA | | mmol/L | DEPARTMENT | | | (LAB) | | | OF | | | | | | PATHOLOGY | | + +-------+ + + + | CHLORIDE, | 104 | 98 - 107 mmol/L | [facility] | | | PLASMA | | | DEPARTMENT | | | (LAB) | | | OF | | | | | | PATHOLOGY | | + +-------+ + + + | TOTAL CO2, | 28 | 23 - 29 mmol/L | [facility] | | | PLASMA | | | DEPARTMENT | | | (LAB) | | | OF | | | | | | PATHOLOGY | | + +-------+ + + + | ALT (SGPT) | 27 | 13 - 48 U/L | [facility] | | | | | [...] | + + + + + | [facility] | [address] | [place] [address] | | | PATHOLOGY | [address] | | | + + + + + | [facility] | [address] [place] [address] [address] | [place] [address] | | | PATHOLOGY | [address] | | | + + + + + MAGNESIUM, PLASMA (08/01/2004 8:15 AM PST) + +-------+ + + + | Component | Value | Ref Range | Performed | Pathologist | | | | | At | Signature | + +-------+ + + + | MAGNESIUM,P | 2.0 | 1.8 - 2.5 mg/dL | [facility] | | | LASMA | | | DEPARTMENT | | | | | | OF | | | | | | PATHOLOGY | | + +-------+ + + + + + | Specimen | + + | | + + + + + + + | Performing | Address | City/State/Zipcode | Phone Number | | Organization | | | | + + + + + | [facility] DEPARTMENT OF | [address] | [place] [address] | | | PATHOLOGY | [address] | | | + + + + + | [facility] DE[facility]MENT OF | [address] | [place] [address] | | | PATHOLOGY | [address] | | | + + + + + PHOSPHORUS, PLASMA (08/01/2004 8:15 AM PST) + +-------+ + + + | Component | Value | Ref Range | Performed | Pathologist | | | | | At | Signature | + +-------+ + + + | PHOSPHORUS, | 3.2 | 2.4 - 4.7 mg/dL | [facility] | | | PLASMA | | | DEPARTMENT | | | (LAB) | | | OF | | | | | | PATHOLOGY | | + +-------+ + + + + + | Specimen | + + | | + + + + + + + | Performing | Address | City/State/Zipcode | Phone Number | | Organization | | | | + + + + + | [facility] | [address] [facility] [address] | [place] [address] | | | PATHOLOGY | [address] | | | + + + + + | [facility] | [address] [place] [address] | [place] [address] | | | PATHOLOGY | [address] | | | + + + + + URIC ACID, PLASMA (08/01/2004 8:15 AM PST) + +-------+ + + + | Component | Value | Ref Range | Performed | Pathologist | | | | | At | Signature | + +-------+ + + + | URIC ACID, | 4.8 | 3.7 - 8.0 mg/dL | [facility] | | | PLASMA | | | DEPARTMENT | | | (LAB) | | | OF | | | | | | PATHOLOGY | | + +-------+ + + + + + | Specimen | + + | | + + + + + + + | Performing | Address | City/State/Zipcode | Phone Number | | Organization | | | | + + + + + | [facility] DEPARTMENT OF | [address] | [place] [address] | | | PATHOLOGY | [address] | | | + + + + + | [facility] DEPARTMENT OF | [address] | [place] [address] | | | PATHOLOGY | [address] | | | + + + + + BILIRUBIN, DIRECT (08/01/2004 8:15 AM PST) + +-------+ + + + | Component | Value | Ref Range | Performed | Pathologist | | | | | At | Signature | + +-------+ + + + | BILIRUBIN | 0.2 | <0.4 mg/dL | [facility] | | | DIRECT | | | DEPARTMENT | | | | | | OF | | | | | | PATHOLOGY | | + +-------+ + + + + + | Specimen | + + | | + + + + + + + | Performing | Address | City/State/Zipcode | Phone Number | | Organization | | | | + + + + + | [facility] DEPARTMENT OF | [address] [facility] [address] | [place] [address] | | | PATHOLOGY | [address] | | | + + + + + | [facility] OF | [facility] [address] | [place] [address] | | | PATHOLOGY | [address] | | | + + + + + LDH, TOTAL, PLASMA (08/01/2004 8:15 AM PST) + +-------+ + + + | Component | Value | Ref Range | Performed | Pathologist | | | | | At | Signature | + +-------+ + + + | LD TOTAL, | 144 | 110 - 205 U/L | [facility] | | | PLASMA | | | DEPARTMENT | | | [...] DEPARTMENT OF | [address] | [place] [address] | | | PATHOLOGY | [address] | | | + + + + + | [facility] DEPARTMENT | [address] | [place] [address] | | | PATHOLOGY | [address] | | | + + + + + CHOLESTEROL, TOTAL (08/01/2004 8:15 AM PST) + + + + + + | Component | Value | Ref Range | Performed | Pathologist | | | | | At | Signature | + + + + + + | CHOLESTEROL | 156Comment: | <200 mg/dL | [facility] | | | (LAB) | Cholesterol Reference | | DEPARTMENT | | | | Range: | | OF | | | | | | PATHOLOGY | | | | Desirable: | | | | | | <200 | | | | | | Borderline | | | | | | High: 200 - | | | | | | 239 | | | | | | High: | | | | | | >=240 LDL | | | | | | Cholesterol Reference | | | | | | Range: | | | | | | | | | | | | Optimal: | | | | | | <100 | | | | | | Near | | | | | | Optimal: 100 - | | | | | | 129 | | | | | | Borderline | | | | | | High: 130 - | | | | | | 159 | | | | | | High: | | | | | | 160 - | | | | | | 189 | | | | | | Very High: | | | | | | >=190 | | | | + + + + + + + + | Specimen | + + | | + + + + + + + | Performing | Address | City/State/Zipcode | Phone Number | | Organization | | | | + + + + + | [facility] | [address] | [place] [address] | | | PATHOLOGY | [address] | | | + + + + + | [facility] DEPARTMENT OF | [address] | [place] [address] | | | PATHOLOGY | [address] | | | + + + + + BLOOD BANK PRODUCT (08/01/2004 8:15 AM PST) + + + + + + | Component | Value | Ref Range | Performed | Pathologist | | | | | At | Signature | + + + + + + | PRODUCT | RED CELL LEUKOREDUCED | | [facility] | | | DESCRIPTION | | | DEPARTMENT | | | | | | OF | | | | | | PATHOLOGY | | + + + + + + | PRODUCT | [id number] | | [facility] | | | UNIT # | | | DEPARTMENT | | | | | | OF | | | | | | PATHOLOGY | | + + + + + + | UNIT ABO | A | | [facility] | | | | | | DEPARTMENT | | | | | | OF | | | | | | PATHOLOGY | | + + + + + + | UNIT RH | POS | | [facility] | | | | | | DEPARTMENT | | | | | | OF | | | | | | PATHOLOGY | | + + + + + + | STATUS OF | Released | | [facility] | | | UNIT | | | DEPARTMENT | | | [...] | + + + + + | [facility] DEPARTMENT OF | [address] | [place] [address] | | | PATHOLOGY | [address] | | | + + + + + | [facility] DEPARTMENT OF | [address] | [place] [address] | | | PATHOLOGY | [address] | | | + + + + + BLOOD BANK PRODUCT (08/01/2004 8:15 AM PST) + + + + + + | Component | Value | Ref Range | Performed | Pathologist | | | | | At | Signature | + + + + + + | PRODUCT | RED CELL LEUKOREDUCED | | [facility] | | | DESCRIPTION | | | DEPARTMENT | | | | | | OF | | | | | | PATHOLOGY | | + + + + + + | PRODUCT | [id number] | | [facility] | | | UNIT # | | | DEPARTMENT | | | | | | OF | | | | | | PATHOLOGY | | + + + + + + | UNIT ABO | A | | [facility] | | | | | | DEPARTMENT | | | | | | OF | | | | | | PATHOLOGY | | + + + + + + | UNIT RH | POS | | [facility] | | | | | | DEPARTMENT | | | | | | OF | | | | | | PATHOLOGY | | + + + + + + | STATUS OF | Released | | [facility] | | | UNIT | | | DEPARTMENT | | | [...] | + + + + + | [facility] DEPARTMENT OF | [address] | [place] [address] | | | PATHOLOGY | [address] | | | + + + + + | [facility] DEPARTMENT OF | [address] | [place] [address] | | | PATHOLOGY | [address] | | | + + + + + ANTIBODY SCREEN & CROSSMATCH (08/01/2004 8:15 AM PST) + +-------+ + + + | Component | Value | Ref Range | Performed | Pathologist | | | | | At | Signature | + +-------+ + + + | ABO GROUP | A | | [facility] | | | | | | DEPARTMENT | | | | | | OF | | | | | | PATHOLOGY | | + +-------+ + + + | RH TYPE | POS | | [facility] | | | | | | DEPARTMENT | | | | | | OF | | | | | | PATHOLOGY | | + +-------+ + + + | ANTIBODY | NEG | | [facility] | | | SCREEN | | | DEPARTMENT | | | | | | OF | | | | | | PATHOLOGY | | + +-------+ + + + + + | Specimen | + + | | + + + + + + + | Performing | Address | City/State/Zipcode | Phone Number | | Organization | | | | + + + + + | [facility] DEPARTMENT OF | [facility] | [place] [address] | | | PATHOLOGY | [address] | | | + + + + + | [facility] DEPARTMENT OF | [facility] | [place] [address] | | | PATHOLOGY | [address] | | | + + + + + documented in this encounter Visit Diagnoses Not on filedocumented in this encounter"
--- OUTSIDE RECORDS SUMMARY | ~2019-02-25 | XMS | Encounter Summary ---
Demographics + + + | Address | [address] | | | [place] [address] | + + + | Home Phone | | + + + | Preferred Language | Unknown | + + + | Marital Status | | + + + | Adventist Affiliation | MET | + + + [...] + | Vibha MACIEL | [address] | | | | | #[place] | | | | | [address] | | + + + + + Care Team Providers + +------+ + | Care Typewriter Tester Name | Role | Phone | + +------+ + PCP | Unavailable | + +------+ + Encounter Details +--------+ + + + + | Date | Type | Department | Care Team | Description | +--------+ + + + + | 08/07/ | Discharge | | Summary, Discharge | D/C Summary ODDS | | 2004 | Summary-Tra | | | | | | nscribed | | | | +--------+ + + [...] + + documented as of this encounter Discharge Summaries Interface, Hydraulic Punch Press Operator In - 04/30/2005 9:09 AM PDT [id number] 08/07/2004 [id number] FREEDOM Owen Admission Date: 08/02/2004 Discharge Date: 08/07/2004 Staff Physician: Jovany Orr M.D. Discharge Diagnosis: Living kidney donor. Principal Procedure: An open left donor nephrectomy. Additional Procedures: 1. Epidural catheter. 2. Physical and occupational therapy. Indication for Procedure: Mr. Loja is a 49-year-old gentleman who presented for living kidney donation to a friend Jose Lima. He has undergone a thorough evaluation and was cleared to proceed. Hospital Course: The patient was admitted on August 02, 2004. He had a preoperative epidural catheter placed for postoperative pain management and underwent an uncomplicated open left donor nephrectomy. Postoperatively he was transferred to the mesa and had marginal pain control with his epidural catheter. He was transitioned to clear liquids on postop day number two and a regular diet on postop day number three. The patient had considerable weakness postoperatively, which is felt to be due to the epidural catheter and overall felt considerable fatigue. Physical therapy worked with the patient and he was able to ambulate without difficulty by the time of discharge and his pain is improved. He had postoperative nausea, which was controlled with a scopolamine patch. This was discontinued on postoperative day number four, but he had some persistent nausea and an episode of vomiting. His abdominal exam was benign. In addition, he had some 1+ lower extremity edema and some edema around his wound. Laboratory studies were evaluated. He had a sodium of 128, which improved to 132 by the time of discharge and a creatinine of 1.8, which improved to 1.6 at time of discharge. His white blood cell count was normal between 6.5 and 8.6 with a hematocrit at discharge of 37.3. In addition, he had some postop fevers on postop day number one, which we attributed to poor pulmonary toilet. The patient is still having some nausea at the time of discharge, but would like to go home. There is nothing concerning on his examination. His wound looks like it is healing well. He was discharged to home with a scopolamine patch and is instructed to call the clinic for any persistent nausea over the next week if this does not resolve. He is able to tolerate a regular diet, he is ambulating and voiding without difficulty, and his wound is healing well at time of discharge. Condition on Discharge: Not Dictated Discharge Medication(s): 1. Oxycodone 5 to 15 mg p.o. q.3-4.h. p.r.n. pain#60. 2. Colace 100 mg p.o. b.i.d. 3. Scopolamine patch 1.5 mg q.72.h. #2. Discharge Instruction(s): Diet: Regular. Follow-Up: With Dr. Orr in one to two weeks. Instructions: Include no lifting more than 10 lbs. for eight weeks. Ben Chavarria M.D. Jovany Orr M.D. SB/x76 P [id number] cc: Electronically signed by Jovany Orr 09-07-2004 08:29:34 AM documented i n this encounter Plan of Treatment Not on filedocumented as of this encounter Visit Diagnoses Not on filedocumented in this encounter"
--- OUTSIDE RECORDS SUMMARY | ~2019-02-25 | XMS | Encounter Summary ---
Demographics + + + | Address | [address] | | | [place] [address] | + + + | Home Phone [...] + + | Vibha MACIEL | [address] | | | | | #[place] | | | | | [address] | | + + + + + Care Team Providers + +------+ + | Care Dog Groomer Name | Role | Phone | + [...] [address] | | | | | | [place] [address] | | | | | | [phone] | | +--------+ + + + + [...] DEPARTMENT OF | [address] | [place] [address] | | | PATHOLOGY | [address] | | | + + + + + | [facility] | [address] | [place] [address] | | | PATHOLOGY | [address] | | | + + + + + documented in this encounter Visit Diagnoses Not on filedocumented in this encounter"
--- OUTSIDE RECORDS SUMMARY | ~2019-02-25 | XMS | Encounter Summary ---
Demographics + + + | Address | [address] | | | [place] [address] | + + + | Home Phone | | + + + | Preferred Language | Unknown | + + + | Marital Status | | + + + | Mandaeism Affiliation | MET | + + + | Race | Unknown | + + + | Ethnic Group | Not or | + + + Author + + + | Author | [facility] | + + + | Organization | [facility] | + + + | Address | Unknown | + + + | Phone | Unavailable | + + + Support + + + + + | Name | Relationship | Address | Phone | + + + + + | Vibha Terrell | [place] | [address] | | | | | #[place] | | | | | [address] | | + + + + + Care Team Providers + +------+ + | Care Director Clinical Data Name | Role | Phone | + [...] | | | [address] | [facility] | | | | | [facility] | [place], [place] | | | | | [place] | [address] | | | | | Mailcode: [id number] | [phone] | | | | | [place] [address] | | | | | | [phone] | | | +--------+ + + + [...] | + + + + + | [facility] | [address] | [place] [address] | | | PATHOLOGY | [address] | | | + + + + + | [facility] | [address] | [facility] [place] [place] [address] | | | PATHOLOGY | [address] | | | + + + + + documented in this encounter Visit Diagnoses Not on filedocumented in this encounter"
--- OUTSIDE RECORDS SUMMARY | ~2019-02-25 | XMS | Encounter Summary ---
Demographics + + + | Address | [address] | | | [place] [address] | + + + | Home Phone | | + + + | Preferred Language | Unknown | + + + | Marital Status | | + + + | Roman Catholic Affiliation | MET | + + + | Race | Unknown | + + + | Ethnic Group | Not or | + + + Author + + + | Author | [facility] | + + + | Organization | [facility] | + + + | Address | Unknown | + + + | Phone | Unavailable | + + + Support + + + + + | Name | Relationship | Address | Phone | + + + + + | Vibha Terrell | [place] | [address] | | | | | #[place] | | | | | [address] | | + + + + + Care Team Providers + +------+ + | Care Heel Compressor Name | Role | Phone | + [...] Telephone follow-up | | 2019 | | [facility] at | [address] | (message from | | | | [address] | [address] | [place]) | | | | [address] | [place], [place] | | | | | Mailcode: [facility] | [address] | | | | | [place], [place] | [phone] | | | | | [address] | | | | | | [phone] | | | +--------+ + + + [...]
--- OUTSIDE RECORDS SUMMARY | ~2019-02-25 | XMS | Encounter Summary ---
Demographics + + + | Address | [address] | | | [place] [address] | + + + | Home Phone | | + + + | Preferred Language | Unknown | + + + | Marital Status | | + + + | Yazidi Affiliation | MET | + + + [...] + + | Vibha MACIEL | [address] | | | | | #[place] | | | | | [address] | | + + + + + Care Team Providers + +------+ + | Care Community Recreation Programmer Name | Role | Phone | + [...]
--- OUTSIDE RECORDS SUMMARY | ~2019-02-25 | XMS | Encounter Summary ---
Demographics + + + | Address | [address] | | | [place] [address] | + + + | Home Phone [...] + + | Vibha MACIEL | [address] | | | | | #[place] | | | | | [address] | | + + + + + Care Team Providers + +------+ + | Care Stemhole Borer And Topper Name | Role | Phone | + [...] | + + + + + | [facility] | [address] | [place] [address] | | | PATHOLOGY | [address] | | | + + + + + | [facility] | [address] | [place] [address] | | | PATHOLOGY | [address] [...] + + | [facility] DEPARTMENT OF | [facility] | [place] [address] | | | PATHOLOGY | [address] | | | + + + + + | [facility] DEPARTMENT OF | [address] | [facility] [place] [address] | | | PATHOLOGY | [address] [...] 7.6 | 7.4 - 10.4 fL | [facility] | | | | | | DEPARTMENT [...] | + + + + + | [facility] DEPARTMENT OF | [address] | [place] [address] | | | PATHOLOGY | [address] | | | + + + + + | [facility] DEPARTMENT OF | [address] | [place] [address] | | | PATHOLOGY | [address] | | | + + + + + documented in this encounter Visit Diagnoses Not on filedocumented in this encounter"
--- OUTSIDE RECORDS SUMMARY | ~2019-02-25 | XMS | Encounter Summary ---
Demographics + + + | Address | [address] | | | [place] [address] | + + + | Home Phone [...] #[place] | | | | | [address] | | + + + + + Care Team Providers + +------+ + | Care Content Developer Name | Role | Phone | + [...] | | | | | | | [place], | | | | | | | [place] [address] | | | | | | | Phone: | | | | | | | [phone] | | | | | | | Fax: | | | | | | | [phone] | + +--------+ + + + + Encounter Details +--------+---------+ + + + | Date | Type | Department | Care Team | Description | +--------+---------+ + + + | 02/13/ | Office | [facility] | Aubrey Andre MD | Retinal detachment, | | 2019 | Visit | [facility] at | [address] | rhegmatogenous, left | | | | [facility] [address] [place], [place] | eye | | | | [address] | [address] | | | | | Mailcode: [facility] | [phone] | | | | | [facility] [place] | | | | | | [address] | | | | | | [phone] | | | +--------+---------+ + + + [...] original. History and Physical (Pre-op) Ralf Loja [id number] 02/13/2019 HPI: RRD OS Current Medications: doxycycline hyclate 100 mg oral capsule, Take 100 mg by mouth once daily. FLUoxetine (PROZAC) 20 mg oral capsule, Take 20 mg by mouth every twenty-four hours. History reviewed. No pertinent past medical history. 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
--- OUTSIDE RECORDS SUMMARY | ~2019-02-25 | XMS | Encounter Summary ---
Demographics + + + | Address | [address] | | | [place] [address] | + + + | Home Phone | | + + + | Preferred Language | Unknown | + + + | Marital Status | | + + + | Synagogue Affiliation | MET | + + + [...] + | Vibha MACIEL | [address] | | | | | #[place] | | | | | [address] | | + + + + + Care Team Providers + +------+ + | Care Bank Compliance Officer Name | Role | Phone | + [...] as of this encounter Progress Notes Interface, Director Food And Beverage In - 04/30/2005 8:28 AM PDTClinic Date: 06/02/2004 Clinic: KIDNEY TRANSPLANT CONFERENCE NOTE Subjective: This 48-year-old man is a potential living renal donor for his friend, Jose Walker, [id number], who has end-stage renal disease due to [...] nephrectomy. Richard Severino M.D. TODD / JADA [id number] / [id number] / [id number] / [id number] Tdocumented in this encounter Plan of Treatment Not on filedocumented as of this encounter Visit Diagnoses Not on filedocumented in this encounter"
--- OUTSIDE RECORDS SUMMARY | ~2019-02-25 | XMS | Clinical Summary ---
Demographics + + + | Address | [address] | | | [place] [address] | + + + | Home Phone | | + + + | Preferred Language | Unknown | + + + | Marital Status | | + + + | Religion Affiliation | 1073 | + + + | Race | Unknown | + + + | Ethnic Group | Unknown | + + + Author + + + | Author | [facility] | | | and [place] | + + + | Organization | [facility] | | | and [place] | + + + | Address | Unknown | + + + | Phone | Unavailable | + + + Support + + +---------+ + | Name | Relationship | Address | Phone | + + +---------+ + | STEPHENIE IRVIN | [place] | Unknown | | + + +---------+ + Care Team Providers + +------+ + | Care Barrel Roller Operator Name | Role | Phone | + +------+ + PP | Unavailable | + +------+ + Allergies Not on File Medications Not on file Active Problems Not on file Social History + +-------+ +--------+------+ | Tobacco [...] recent travel history available. | + + Plan of Treatment + + + + + | Health Maintenance | Due Date | Last Done | Comments | + + + + + | Vaccine: | | | | | Dtap/Tdap/Td (1 - | 3 | | | | Tdap) | | | | + + + + + | Vaccine: Zoster (1 | | | | | of 2) | 4 | | | + + + + + | Vaccine: Influenza | | | | | (Season Ended) | 9 | | | + + + + + Results Not on filefrom Last 3 Months"
--- OUTSIDE RECORDS SUMMARY | ~2019-02-25 | XMS | Encounter Summary ---
Demographics + + + | Address | [address] | | | [place] [address] | + + + | Home Phone | | + + + | Preferred Language | Unknown | + + + | Marital Status | | + + + | Restorationist Affiliation | MET | + + + [...] + + | Vibha MACIEL | [address] | | | | | #[place] | | | | | [address] | | + + + + + Care Team Providers + +------+ + | Care Hydramatic Specialist Name | Role | Phone | + [...] | Transcriptions | + + | Interface, Greensman In - 09/23/2005 6:05 AM PST | | [id number] | | [id number] [facility] | | | | Date: 08/02/2004 | | | | Attending Surgeon: Jovany Orr M.D. | | | | Licensed Pharmacist(s): Ben Chavarria M.D. | | | | [...] | | which was oversewn with a pbuhkt-eh-jtlhm 6-0 Prolene suture. The renal | | [...] | with renal vein with 5-0 interrupted letway-jj-pdknz Prolene suture. The | | ureter was [...] layer of | | interrupted 0 Maxon kntrlu-zc-ozjpx sutures. A running 4-0 Polysorb was | [...] | | SB / HS | | [id number] / [id number] / [id number] / [id number] | | | | | | | | | | | | Electronically signed by Jovany Orr 08-05-2004 02:29:50 PM | + + documented in this encounter Visit Diagnoses Not on filedocumented in this encounter"
--- OUTSIDE RECORDS SUMMARY | ~2019-02-25 | XMS | Encounter Summary ---
Demographics + + + | Address | [address] | | | [place] [address] | + + + | Home Phone | | + + + | Preferred Language | Unknown | + + + | Marital Status | | + + + | Worship Affiliation | MET | + + + [...] + + | Vibha MACIEL | [address] | | | | | #[place] | | | | | [address] | | + + + + + Care Team Providers + +------+ + | Care Deputy Program Manager Name | Role | Phone | [...] as of this encounter Progress Notes Interface, Welding Foreman In - 04/30/2005 9:09 AM PDT [id number] [facility] Date: 08/08/2004 Clinic: TELEPHONE NOTE I spoke to Dr. Juan M Young who is the pgackcg-ih-thq of the patient, Ralf Loja, today. Ralf was discharged yesterday and is staying with his family in [place], [place]. Dr. Young is a family physician [...] M.D. Jovany Orr M.D. Resident, Surgery / [id number] / [id number] / [id number] / Electronically signed by Jovany Orr 09-07-2004 08:29:44 AM documented i n this encounter Plan of Treatment Not on filedocumented as of this encounter Visit Diagnoses Not on filedocumented in this encounter"
--- OUTSIDE RECORDS SUMMARY | ~2019-02-25 | XMS | Encounter Summary ---
Demographics + + + | Address | [address] | | | [place] [address] | + + + | Home Phone | | + + + | Preferred Language | Unknown | + + + | Marital Status | | + + + | Episcopal Affiliation | MET | + + + [...] | Vibha Terrell | [place] | [address] | | | | | #[place] | | | | | [address] | | + + + + + Care Team Providers + +------+ + | Care Audio Operator Name | Role | Phone | [...]
--- OUTSIDE RECORDS SUMMARY | ~2019-02-25 | XMS | Encounter Summary ---
Demographics + + + | Address | [address] | | | [place] [address] | + + + | Home Phone | | + + + | Preferred Language | Unknown | + + + | Marital Status | | + + + | Sikh Affiliation | MET | + + + | Race | Unknown | + + + | Ethnic Group | Not or | + + + Author + + + | Author | [facility] | + + + | Organization | [facility] | + + + | Address | Unknown | + + + | Phone | Unavailable | + + + Support + + + + + | Name | Relationship | Address | Phone | + + + + + | Vibha Terrell | [place] | [address] | | | | | #[place] | | | | | [address] | | + + + + + Care Team Providers + +------+ + | Care Reproductive Endocrinologist Name | Role | Phone | + [...] [address] | | | | | | [facility], | | | | | | [place] [address] | | | +--------+ + + + [...]
--- OUTSIDE RECORDS SUMMARY | ~2019-02-25 | XMS | Encounter Summary ---
Demographics + + + | Address | [address] | | | [place] [address] | + + + | Home Phone | | + + + | Preferred Language | Unknown | + + + | Marital Status | | + + + | Latter Day Affiliation | MET | + + + | Race | Unknown | + + + | Ethnic Group | Not or | + + + Author + + + | Author | [facility] | + + + | Organization | [facility] | + + + | Address | Unknown | + + + | Phone | Unavailable | + + + Support + + + + + | Name | Relationship | Address | Phone | + + + + + | Vibha Terrell | [place] | [address] | | | | | #[place] | | | | | [address] | | + + + + + Care Team Providers + +------+ + | Care Front Man Name | Role | Phone | + +------+ + PCP | Unavailable | + +------+ + Encounter Details +--------+ + + + + | Date | Type | Department | Care Team | Description | +--------+ + + + + | 08/02/ | Results | [facility] | Jovany Orr MD | | | 2003 | Only | [address] | [address] | | | | | [facility] | [facility] [place] | | | | | Mailcode: L588 | [address] | | | | | [facility] | [phone] | | | | | [place], [place] | | | | | | [address] | | | | | | [phone] | | | +--------+ + + + [...] + + | [facility] DEPARTMENT OF | [address] | [place] [address] | | | PATHOLOGY | [address] | | | + + + + + | [facility] DEPARTMENT OF | [address] | [place] [address] | | | PATHOLOGY | [address] | | | + + + + + CREATININE, PLASMA (08/18/2004 11:05 AM PST) + +---------+ + + + | Component | Value | Ref Range | Performed | Pathologist | | | | | At | Signature | + +---------+ + + + | CREATININE | 1.7 (H) | 0.7 - 1.3 mg/dL | [facility] | | | PLASMA | | [...] | + + + + + | [facility] DEPARTMENT OF | [address] | [place] [address] | | | PATHOLOGY | [address] | | | + + + + + | [facility] DEPARTMENT OF | [address] | [place] [address] | | | PATHOLOGY | [address] [...] DEPARTMENT OF | [address] | [place] [address] | | | PATHOLOGY | [address] | | | + + + + + | [facility] DEPARTMENT | [address] | [place] [address] | | | PATHOLOGY | [address] [...] | + + + + + | [facility] DEPARTMENT OF | [address] | [place] [address] | | | PATHOLOGY | [address] | | | + + + + + | [facility] DEPARTMENT OF | [address] | [place] [address] | | | PATHOLOGY | [address] [...] | + + + + + | [facility] | [address] | [place] [address] | | | PATHOLOGY | [address] | | | + + + + + | [facility] | [address] | [place] [address] | | | PATHOLOGY | [address] [...] | | + +---------+ + + | [facility] DEPARTMENT OF | | | | [...] + + + | [facility] | [address] | [place] [address] | | | LAB-MICRO | | | [...] | + + + + + | [facility] | [address] | [place] [address] | | | PATHOLOGY | [address] | | | + + + + + | [facility] | [address] | [place] [address] | | | PATHOLOGY | [address] [...] | + + + + + | [facility] DEPARTMENT OF | [address] | [place] [address] | | | PATHOLOGY | [address] | | | + + + + + | [facility] DEPARTMENT OF | [address] | [place] [address] | | | PATHOLOGY | [address] [...] | + + + + + | [facility] DEPARTMENT OF | [address] | [place] [address] | | | PATHOLOGY | [address] | | | + + + + + | [facility] DEPARTMENT OF | [facility] [address] | [place] [address] | | | PATHOLOGY | [address] [...] | + + + + + | [facility] | [address] | [place] [address] | | | PATHOLOGY | [address] | | | + + + + + | [facility] | [address] | [facility] [place] [address] | | | PATHOLOGY | [address] [...] | + + + + + | [facility] DEPARTMENT OF | [address] | [place] [address] | | | PATHOLOGY | [address] | | | + + + + + | [facility] DEPARTMENT | [address] | [place] [address] | | | PATHOLOGY | [address] [...] | + + + + + | [facility] OF | [address] | [place] [address] | | | PATHOLOGY | [address] | | | + + + + + | [facility] OF | [address] [place] [address] [address] | [place] [address] | | | PATHOLOGY | [address] [...] OF | [address] | [place] [address] | | | PATHOLOGY | [address] | | | + + + + + | [facility] DEPARTMENT OF | [address] | [place] [address] | | | PATHOLOGY | [address] | | | + + + + + COMP METABOLIC SET (08/01/2004 8:15 AM PST) + +-------+ + + + | Component | Value | Ref Range | Performed | Pathologist | | | | | At | Signature | + +-------+ + + + | GLUCOSE, | 100 | 65 - 110 mg/dL | [facility] | | | PLASMA | | [...] | + + + + + | [facility] | [address] | [place] [address] | | | PATHOLOGY | [address] | | | + + + + + | [facility] | [address] [place] [address] [address] | [place] [address] | | | PATHOLOGY | [address] | | | + + + + + MAGNESIUM, PLASMA (08/01/2004 8:15 AM PST) + +-------+ + + + | Component | Value | Ref Range | Performed | Pathologist | | | | | At | Signature | + +-------+ + + + | MAGNESIUM,P | 2.0 | 1.8 - 2.5 mg/dL | [facility] | | | LASMA | | [...] | + + + + + | [facility] DEPARTMENT OF | [address] | [place] [address] | | | PATHOLOGY | [address] | | | + + + + + | [facility] DE[facility]MENT OF | [address] | [place] [address] | | | PATHOLOGY | [address] [...] | + + + + + | [facility] | [address] | [place] [address] | | | PATHOLOGY | [address] | | | + + + + + | [facility] | [address] [place] [address] | [place] [address] | | | PATHOLOGY | [address] [...] | + + + + + | [facility] DEPARTMENT OF | [address] | [place] [address] | | | PATHOLOGY | [address] | | | + + + + + | [facility] DEPARTMENT OF | [address] | [place] [address] | | | PATHOLOGY | [address] | | | + + + + + BILIRUBIN, DIRECT (08/01/2004 8:15 AM PST) + +-------+ + + + | Component | Value | Ref Range | Performed | Pathologist | | | | | At | Signature | + +-------+ + + + | BILIRUBIN | 0.2 | <0.4 mg/dL | [facility] | | | DIRECT | | | [...] | + + + + + | [facility] DEPARTMENT OF | [address] | [place] [address] | | | PATHOLOGY | [address] | | | + + + + + | [facility] | [facility] [address] | [place] [address] | | | PATHOLOGY | [address] [...] DEPARTMENT OF | [address] | [place] [address] | | | PATHOLOGY | [address] | | | + + + + + | [facility] DEPARTMENT | [address] | [place] [address] | | | PATHOLOGY | [address] [...] | + + + + + | [facility] | [address] | [place] [address] | | | PATHOLOGY | [address] | | | + + + + + | [facility] DEPARTMENT OF | [address] | [place] [address] | | | PATHOLOGY | [address] [...] + + + + | PRODUCT | [id number] | | [facility] | | | UNIT [...] | + + + + + | [facility] DEPARTMENT OF | [address] | [place] [address] | | | PATHOLOGY | [address] | | | + + + + + | [facility] DEPARTMENT OF | [address] | [place] [address] | | | PATHOLOGY | [address] [...] + + + + | PRODUCT | [id number] | | [facility] | | | UNIT [...] | + + + + + | [facility] DEPARTMENT OF | [address] | [place] [address] | | | PATHOLOGY | [address] | | | + + + + + | [facility] DEPARTMENT OF | [address] | [place] [address] | | | PATHOLOGY | [address] [...] | + + + + + | [facility] DEPARTMENT OF | [facility] | [place] [address] | | | PATHOLOGY | [address] | | | + + + + + | [facility] DEPARTMENT OF | [facility] | [place] [address] | | | PATHOLOGY | [address] | | | + + + + + documented in this encounter Visit Diagnoses Not on filedocumented in this encounter"
--- OUTSIDE RECORDS SUMMARY | ~2019-02-25 | XMS | Clinical Summary ---
Demographics + + + | Address | [address] | | | [place] [address] | + + + | Home Phone | | + + + | Preferred Language | Unknown | + + + | Marital Status | | + + + | Islam Affiliation | 1073 | + + + | Race | Unknown | + + + | Ethnic Group | Unknown | + + + Author + + + | Author | [facility] | | | and [place] | + + + | Organization | [facility] | | | and [place] [...] Team Providers + +------+ + | Care Body Masker Name | Role | Phone | + [...]
--- OUTSIDE RECORDS SUMMARY | ~2019-02-25 | XMS | Encounter Summary ---
Demographics + + + | Address | [address] | | | [place] [address] | + + + | Home Phone | | + + + | Preferred Language | Unknown | + + + | Marital Status | | + + + | Synagogue Affiliation | MET | + + + | Race | Unknown | + + + | Ethnic Group | Not or | + + + Author + + + | Author | [facility] | + + + | Organization | [facility] | + + + | Address | Unknown | + + + | Phone | Unavailable | + + + Support + + + + + | Name | Relationship | Address | Phone | + + + + + | Vibha Terrell | [place] | [address] | | | | | #[place] | | | | | [address] | | + + + + + Care Team Providers + +------+ + | Care Job Estimator Name | Role | Phone | + [...] [address] | | | | | | [facility] | | | | | | [place], [place] | | | | | | [address] | | | +--------+ + + + [...] | + + | 08/03/2004 11:00 AM [facility] Anesthesia PostOp Report | | | | Patient: JENNIFER DANIELS Med Rec: [id number] Sex M Bdate: 1955 | | Date/Time Data | | Entered Into [facility] | | Anesth PostOp | | Surgery Date [id number] 08/03/04 11:00 | | Anesthesiologist DOMINICK BENNETT [...]
--- OUTSIDE RECORDS SUMMARY | ~2019-02-25 | XMS | Encounter Summary ---
Demographics + + + | Address | [address] | | | [place] [address] | + + + | Home Phone [...] + + + | Author | [facility] | + + + | Organization | [facility] | + + + | Address | Unknown | + + + | Phone | Unavailable | + + + Support + + + + + | Name | Relationship | Address | Phone | + + + + + | Vibha Terrell | [place] | [address] | | | | | #[place] | | | | | [address] | | + + + + + Care Team Providers + +------+ + | Care Replenishment Analyst Name | Role | Phone | [...] as of this encounter Progress Notes Interface, Lumite Injector In - 04/30/2005 9:32 AM PDT [id number] [facility] Date: 08/18/2004 Clinic: Urology [...] and hematocrit today. He is returning to [place], [place], for followup with a physician's anesthesiology physician assistant that he sees in [place]. Jovany Orr M.D. [facility] / [id number] / [id number] / [id number] / [id number] documented i n this encounter Plan of Treatment Not on filedocumented as of this encounter Visit Diagnoses Not on filedocumented in this encounter"
--- OUTSIDE RECORDS SUMMARY | ~2019-02-25 | XMS | Encounter Summary ---
Demographics + + + | Address | [address] | | | [place] [address] | + + + | Home Phone | | + + + | Preferred Language | Unknown | + + + | Marital Status | | + + + | Zoroastrianism Affiliation | MET | + + + [...] + + | Vibha MACIEL | [address] | | | | | #[place] | | | | | [address] | | + + + + + Care Team Providers + +------+ + | Care City Superintendent Name | Role | Phone | + [...] as of this encounter Discharge Summaries Interface, High Worker In - 04/30/2005 9:09 AM PDT [id number] 08/07/2004 [id number] [facility] Admission Date: 08/02/2004 Discharge Date: [...] Chavarria M.D. Jovany Orr M.D. SB/x76 P [id number] cc: Electronically signed by Jovany Orr 09-07-2004 08:29:34 AM documented i n this encounter Plan of Treatment Not on filedocumented as of this encounter Visit Diagnoses Not on filedocumented in this encounter"
[2019-02-25] MEDS ORDERED: ATIVAN0.5 MG PO (13:34)
[2019-02-25] MEDS ORDERED: ZOFRAN4 MG SL (13:36)
--- NOTE | 2019-02-25 19:16 | EKG ---
[facility] [address] [facility] [place], [place] [address] Signed Sinus tachycardia Otherwise normal ECG No previous ECGs available Confirmed by MEGAN GONZALES MD ([id number]) on 02/25/2019 7:15:40 PM Electronically Signed By: MEGAN GONZALES MD 02/25/19 1916 PATIENT NAME: JENNIFER DANIELS Electrocardiogram DATE OF : 53 PHYSICIAN: MEGAN GONZALES MD REPORT #: [id number] REPORT IS CONFIDENTIAL AND NOT TO BE RELEASED WITHOUT AUTHORIZATION
== END 2019-02-25 13:40 | disposition home or self-care (01) ==
LOC: ED 11:12
DX: F41.9 Anxiety disorder, unspecified (principal); I10 Essential (primary) hypertension; F32.9 Major depressive disorder, single episode, unspecified; Z79.899 Other long term (current) drug therapy
CPT/HCPCS: 71045; 80053; 81001; 84484; 85025; 85379; 93005; 93010; 96361; 96374; 99285-25; J2060; J7030

== ENCOUNTER 2020-10-28 13:08 | Day surgery (SDC) | payer MEDICARE, OTHER ==
[~2020-10-28] VITALS: Ht 180.3 cm; Wt 131.8 kg
[~2020-10-28 13:08] MED LIST changes: +ATIVAN0.5 MG PO; +ZOFRAN4 MG SL
[2020-10-28] MEDS ORDERED: WELLBUTRIN SR100 MG PO (13:21)
[2020-10-28] MEDS ORDERED: FLOMAX0.4 MG PO (13:22)
--- NOTE | 2020-10-28 14:44 | NUR ---
10/28/20 1444 Margareth Gould 1439- PT ARRIVES TO PACU. PT WILL OPEN HIS EYES TO VOICE. FALLS INSTANTLY BACK TO SLEEP WHEN NOT BEING TALKED TO. RESP EVEN AND UNLABORED. OXYGEN SAT HIGH 90'S TO 100% ON 2L VIA NC. 1443- PT PASSING FLATUS.
--- NOTE | 2020-11-02 16:45 | PATH ---
[facility] [address] [place], [place] [address] Signed SPECIMEN(S): A CECUM SPECIMEN SOURCE: A. CECUM CLINICAL HISTORY: History of polyps. Post: Normal colon, hyperplasia at cecum. MICROSCOPIC DESCRIPTION: Histologic sections of all submitted blocks are examined by light microscopy. These findings, together with the gross examination, support the pathologic diagnosis. FINAL PATHOLOGIC DIAGNOSIS: Colon, cecum, biopsy: - Colonic mucosa with no histopathologic abnormality. - Negative for dysplasia or malignancy. COMMENT: Multiple additional deeper levels were examined. NAL:cml:C2NR GROSS DESCRIPTION: The specimen, labeled "MH, cecum biopsy," is received in formalin and consists of one cai soft tissue fragment that measures 0.2 cm in greatest dimension. The specimen is entirely submitted in cassette (A1). JS (under the direct supervision of a pathologist) The Gross Description was prepared using a voice recognition system. The report was reviewed for accuracy; however, sound-alike word errors, addition and/or deletions may occur. If there is any question about this report, please contact Client Services. PERFORMING LABORATORY: The technical component was performed by [facility], [address] [place] [id number] (Site Medical Director: Vibha Cuellar MD; CLIA# [id number]). [facility], [address] [address] (CLIA# [id number]). Diagnostician: Larissa Brewster MD Pathologist PATIENT NAME: JENNIFER DANIELS PATHOLOGY DATE OF : 53 REPORT #: [id number] PHYSICIAN: [facility] PCP: ISRA HAWKINS PAC REPORT IS CONFIDENTIAL AND NOT TO BE RELEASED WITHOUT AUTHORIZATION [address] [place], [place] [address] Signed Electronically Signed 11/02/2020 Copies: ~ PATIENT NAME: JENNIFER DANIELS PATHOLOGY DATE OF : 53 REPORT #: [id number] PHYSICIAN: [facility] PCP: ISRA HAWKINS PAC REPORT IS CONFIDENTIAL AND NOT TO BE RELEASED WITHOUT AUTHORIZATION
--- NOTE | 2020-11-02 16:56 | OR ---
[facility] [address] [place], [place] [address] Signed DATE OF OPERATION: 10/28/2020 SURGEON: Mason Palma MD PREOPERATIVE DIAGNOSIS: History of tubular adenoma in 2016. POSTOPERATIVE DIAGNOSIS: Normal colon to cecum, possible hyperplasia at cecum (biopsy). PROCEDURE: Total colonoscopy to cecum with biopsy. ANESTHESIA: Intravenous sedation, fentanyl 150 mcg, Versed 9 mg. INDICATION: This 65-year-old white man is a patient of DONTRELL Oliver. He has a history of tubular adenoma noted in 2016 as well as hyperplastic polyp. He had three polyps noted at that time, only one adenoma. He is symptom free, having no bleeding, diarrhea, or constipation currently. He has no family history of colon cancer. He is admitted to undergo surveillance colonoscopy. Understand the risks of bleeding, infection, perforation, and so on. FINDINGS: The prep was good. Complete colonoscopy was undertaken to the cecum without question. He appeared to have hyperplasia of the area of the cecum behind the ileocecal valve, but no distinct polyp including on narrow band imaging. There was no evidence of diverticulosis or other abnormality. DESCRIPTION OF PROCEDURE: The patient was brought to the endoscopy suite and placed in lateral decubitus position, given intravenous sedation to the point of slurred speech and nystagmus. Digital rectal examination was normal. Additional sedation was given throughout the procedure as necessary. The Olympus video colonoscope was passed in the rectum and manipulated throughout the colon, ultimately intubating the cecum. The ileocecal valve and appendiceal orifice were normal in appearance, but there appeared to be a somewhat hypertrophic area. Narrow band imaging did not confirm findings of true adenomatous polyp. However, given those findings, biopsies were taken of the area in question. The scope was then withdrawn and careful examination upon withdrawal of scope showed no sign Electronically Signed By: MASON PALMA MD 11/02/20 1656 PATIENT NAME: JENNIFER DANIELS OPERATIVE REPORT DATE OF : 53 REPORT #: [id number] PHYSICIAN: MASON PALMA MD PCP: ISRA HAWKINS PAC REPORT IS CONFIDENTIAL AND NOT TO BE RELEASED WITHOUT AUTHORIZATION [facility] [address] [place], [place] [address] Signed of polyps, diverticular formation, colitis, or cancer. Retroflex view was normal as well. The scope was removed and the patient taken to the recovery room in good condition. CONCLUDING DIAGNOSIS: No evidence of actual polyps, questionable hyperplasia of cecum (biopsied). PLAN: Recommend repeat colonoscopy in 10 years sooner if symptoms should occur. He will return to the ongoing care of Damian Urbina. MD ED Stokes/MODL /[id number] Copies: ~ Electronically Signed By: MASON PALMA MD 11/02/20 1656 PATIENT NAME: JENNIFER DANIELS OPERATIVE REPORT DATE OF : 53 REPORT #: [id number] PHYSICIAN: MASON PALMA MD PCP: ISRA HAWKINS PAC REPORT IS CONFIDENTIAL AND NOT TO BE RELEASED WITHOUT AUTHORIZATION
== END 2020-10-28 15:25 | disposition home or self-care (01) ==
LOC: OPS 13:08 → DS 13:11 → OPS 14:00 → DS 14:00 → OPS 15:25
PROVIDERS: ATTEND Surgery
PROC: 0DBC8ZX Excision of Ileocecal Valve, Via Natural or Artificial Opening Endoscopic, Diagnostic (ICD-10-PCS; principal; 2020-10-28 14:00)
DX: Z12.11 Encounter for screening for malignant neoplasm of colon (principal); G47.30 Sleep apnea, unspecified; N13.8 Other obstructive and reflux uropathy; F41.8 Other specified anxiety disorders; F17.200 Nicotine dependence, unspecified, uncomplicated; E66.9 Obesity, unspecified; Z68.31 Body mass index [BMI] 31.0-31.9, adult; Z86.010 Personal history of colon polyps; Z87.19 Personal history of other diseases of the digestive system
CPT/HCPCS: 88305; 99153; G0500; J0690; J2250; J3010; J7121

== ENCOUNTER 2021-05-07 15:34 | Emergency (ER) | payer MEDICARE, OTHER ==
[~2021-05-07] VITALS: Ht 180.3 cm; Wt 131.5 kg
[~2021-05-07 15:34] MED LIST changes: +FLOMAX0.4 MG PO; +WELLBUTRIN SR100 MG PO
[2021-05-07] MEDS ORDERED: VITAMIN D21250 MCG PO (16:12)
[2021-05-07] MEDS ORDERED: CEPHALEXIN500 M1 PO (16:47)
== END 2021-05-07 17:20 | disposition home or self-care (01) ==
LOC: ED 15:34
DX: S81.811A Laceration without foreign body, right lower leg, initial encounter (principal); I10 Essential (primary) hypertension; Z87.891 Personal history of nicotine dependence; Z79.899 Other long term (current) drug therapy; W22.8XXA Striking against or struck by other objects, initial encounter
CPT/HCPCS: 12002; 99282-25

== ENCOUNTER 2021-05-20 23:11 | Emergency (ER) | payer MEDICARE, OTHER ==
[~2021-05-20] VITALS: Ht 180.3 cm; Wt 104.3 kg
[~2021-05-20 23:11] MED LIST changes: +CEPHALEXIN500 M1 PO; +VITAMIN D21250 MCG PO
--- OUTSIDE RECORDS SUMMARY | 2021-05-20 23:14 | XMS ---
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 Ana has no Care Guidelines for this patient. [facility] (12 MO.) [facility] NOTE: Visits indicate total known visits. ED/C VISIT TRACKING (12 MO.) [facility]21 23:[facility] [place] [facility] COMPLAINT: - RT EYE PROBLEM 05/07/2021 15:34 [facility] TYPE: Emergency COMPLAINT: - RIGHT LEG LACERATION DIAGNOSES: - Personal history of nicotine dependence - Essential (primary) hypertension - Other termination clerk (current) drug therapy - Striking against or struck by other objects, initial encounter - Laceration without foreign body, right lower leg, initial encounter INPATIENT VISIT TRACKING (12 MO.) 01/18/2021 11:07 [facility] [place] TYPE: Orthopedic DIAGNOSES: - Primary osteoarthritis, right shoulder 08/10/2020 05:56 [facility] [place] TYPE: Orthopedic DIAGNOSES: - Bilateral primary osteoarthritis of knee [email or web address]
[2021-05-20] MEDS ORDERED: DOXYCYCLINE HY100 M3 PO (23:30)
== END 2021-05-21 00:04 | disposition home or self-care (01) ==
LOC: ED 23:11
DX: H11.31 Conjunctival hemorrhage, right eye (principal); Z79.899 Other long term (current) drug therapy
CPT/HCPCS: 99283

== ENCOUNTER 2022-04-27 22:12 | Emergency (ER) | payer MEDICARE, OTHER ==
[~2022-04-27] VITALS: Ht 180.3 cm; Wt 108.0 kg
[~2022-04-27 22:12] MED LIST changes: +DOXYCYCLINE HY100 M3 PO
[2022-04-27] MEDS ORDERED: PREDNISOLONE ACE5 ML OPTH (22:25)
== END 2022-04-27 23:16 | disposition home or self-care (01) ==
LOC: ED 22:12
DX: G89.18 Other acute postprocedural pain (principal); H57.12 Ocular pain, left eye; Z79.899 Other long term (current) drug therapy; Z79.52 Long term (current) use of systemic steroids
CPT/HCPCS: 99283; A9270